=== PATIENT | male | born 1955 | race Caucasian/White ===

== ENCOUNTER 2019-01-16 18:01 | Inpatient (IN) ==
[2019-01-16] MEDS ORDERED: M.V.I.-12 10 ML, FOLIC ACID 1 MG, MAGNESIUM SULFATE 1 GM, THIAMINE 100 MG in NS 1,000 ML IV ONE (18:35)
[2019-01-16 19:09] LABS: AGAP 14; BUN 4 mg/dL (8-22); CALCIUM 9.3 mg/dL (8.8-10.2); CHLORIDE 96 mmol/L (98-107); COSMO 264; CREATININE 0.6 mg/dL (0.7-1.2); ESTIMATED GFR > 60; GLUCOSE 113 mg/dL (70-104); MAGNESIUM 1.4 mg/dL (1.5-2.7); PHOSPHORUS 2.5 mg/dL (2.7-4.5); POTASSIUM 3.3 mmol/L (3.5-5.1); SODIUM 133 mmol/L (136-145); TCO2 23 mmol/L (25-35)
[2019-01-16] MEDS ORDERED: POTASSIUM CHLORIDE 10% LIQUID PO ONE (19:40)
[2019-01-16] MEDS ORDERED: POTASSIUM PHOSPHATE 30 MEQ in NS 250 ML IV ONE (19:40)
[2019-01-16] MEDS ORDERED: ATIVAN IV ONE ×2 (19:41→21:54)
[2019-01-16] MEDS ORDERED: NS 1,000 ML IV ONE (21:35)
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
[2019-01-16] MEDS ORDERED: MAGNESIUM SULFATE 1 GM/D5W 1 GM/100 ML IVPB IV ONE (21:39)
[2019-01-16 21:43] LABS: BASO# 0.03 X1000 (0.0-0.2); BASO% 0.5 % (0.0-0.8); EOS# 0.14 X1000 (0.0-0.7); EOS% 2.2 % (0.0-10.0); HEMATOCRIT 37.6 % (42.0-52.0); HEMOGLOBIN 13.2 g/dL (14.0-18.0); LYMPH# 0.85 X1000 (1.2-3.4); LYMPH% 13.5 % (20.5-51.1); MCH 36.3 PG (27-31); MCHC 35.1 g/dL (33-37); MCV 103.3 FL (81-99); MONO# 1.11 X1000 (0.11-0.59); MONO% 17.6 % (1.7-9.3); MPV 10.1 FL (7.4-10.4); NEUT# 4.16 X1000 (1.4-6.5); NEUT% 66.2 % (42.2-75.2); PLT 175 X1000 (130-400); RBC 3.64 XMIL (4.7-6.1); RDW 11.2 % (11.5-14.5); WBC 6.29 X1000 (4.8-10.8)
[2019-01-16 21:54] LABS: ALB/GLOB RATIO 1.2; ALBUMIN 3.7 g/dL (3.5-5.0); DIRECT BILIRUBIN 0.5 mg/dL (0.00-0.20); TOTAL BILIRUBIN 1.13 mg/dL (0.20-1.00); TOTAL PROTEIN 6.7 g/dL (6.3-8.3)
[2019-01-16] MEDS ORDERED: PHENOBARBITAL IV ONE (21:54)
[2019-01-16] MEDS ORDERED: ATIVAN ONE (21:58)
[2019-01-16] MEDS ORDERED: PHENOBARBITAL ONE (21:58)
--- NOTE | 2019-01-16 22:24 | EKG Report ---
Test Performed on : 01/16/2019 9:43:26 PM Test Reason : tachycardia Blood Pressure : / mmHG Vent. Rate : 083 BPM Atrial Rate : 083 BPM P-R Int : 190 ms QRS Dur : 090 ms QT Int : 384 ms P-R-T Axes : 143 -24 145 degrees QTc Int : 451 ms Unusual P axis, possible ectopic atrial rhythm. with undetermined rhythm irregularity. Low voltage QRS Inferior infarct (cited on or before 14-JAN-2019) T wave abnormality, consider lateral ischemia Abnormal ECG When compared with ECG of 16-JAN-2019 18:19, (Unconfirmed) Ectopic atrial rhythm. has replaced Sinus rhythm. Unconfirmed Result
--- NOTE | 2019-01-16 22:32 | EKG Report ---
Test Performed on : 01/16/2019 6:19:21 PM Test Reason : TACHYCARDIA Blood Pressure : / mmHG Vent. Rate : 117 BPM Atrial Rate : 117 BPM P-R Int : 176 ms QRS Dur : 086 ms QT Int : 328 ms P-R-T Axes : 070 -06 068 degrees QTc Int : 457 ms Sinus tachycardia. Possible Inferior infarct (cited on or before 14-JAN-2019) Abnormal ECG When compared with ECG of 14-JAN-2019 23:13, (Unconfirmed) No significant change was found Unconfirmed Result
--- NOTE | 2019-01-17 00:01 | HISTORY AND PHYSICAL ---
CHIEF COMPLAINT: Weakness in legs. HISTORY OF PRESENT ILLNESS: Mr. Breaux is a 63-year-old male who was discharged earlier today because he did not want to take Librium. He is a chronic alcoholic. His only other past medical history is hypertension and gout. At any rate, he started having cramping in his legs and could not walk. Came back to the emergency room and was found to have a potassium of 3.3, a magnesium of 1.4 and a phosphorus of 2.5. He was also very shaky. This is his 3rd day without alcohol. He will be admitted to ICU for alcohol withdrawal. PAST MEDICAL HISTORY: See HPI. PREVIOUS SURGICAL HISTORY: None to note. ALLERGIES: No known drug allergies. CURRENT MEDICATION: The patient was unable to tell me what his blood pressure medication was. It was never reconciled from yesterday either. SOCIAL HISTORY: No tobacco. Ten-plus beers a day. Started drinking when he was 16 and has drank daily for the last 20-30 years. No illicit drugs. 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 FAMILY HISTORY: Mother was an alcoholic. Father in a plane crash. Did not have any chronic medical history. REVIEW OF SYSTEMS: Fourteen-point review of systems listed above in the HPI. All other systems reviewed and found to be negative. PHYSICAL EXAMINATION: VITAL SIGNS: Temperature 98.3, pulse 101, respirations 18, blood pressure 151/111, oxygen saturation 99. GENERAL: A 63-year-old male lying in the ER stretcher. Has noted resting tremor. Appears anxious. He is alert and oriented times 3. Able to answer all questions appropriately. HEENT: Head is atraumatic, normocephalic. Pupils are equal, round, reactive to light. Flushing to face is noted. Sclerae are anicteric. Conjunctiva is pink. Oral mucosa is dry. NECK: Supple. No JVD. No thyromegaly. Trachea is midline. No cervical lymphadenopathy. CARDIAC: S1, S2 appreciated. No murmurs, gallops, rubs. He is tachycardic. LUNGS: Clear to auscultation bilaterally. No rhonchi, wheezes, rales. Symmetric rise and fall with respirations. ABDOMEN: Soft, nondistended, nontender. Bowel sounds present all 4 quadrants, normoactive. No pulsatile mass. No organomegaly. EXTREMITIES: No clubbing, cyanosis or edema. NEUROLOGICAL: Alert and oriented times 3. Is awake and alert. Denies any auditory or visual hallucinations at this time. GENITOURINARY: No bladder distention. Patient voids. Otherwise deferred. INTEGUMENTARY: Warm, dry, intact. Flushing noted to his face. No acute lesions or rash. LABORATORY DATA: WBC 6.29. Hemoglobin 13.2. Hematocrit 37.6. Platelet count 175. Sodium 133. Potassium 3.3. Chloride 96. Carbon dioxide 23. BUN 4. Creatinine 0.6. Glucose 113. Phosphorus 2.5. Magnesium 1.4. ASSESSMENT AND PLAN: 1. Alcohol withdrawal. We will give phenobarbital IV p.r.n. every 2 hours times 3 doses. A dose was given in the emergency room. We will give Ativan 1 mg IV q.2 hours for the first 24 hours then can be changed to p.o. Librium, defer to the primary team for this. We will give thiamine IV and a multivitamin daily. Recheck magnesium, and phosphorus and potassium tomorrow morning, retreat if necessary. 2. Deranged electrolytes. See above. 3. Fluid volume depletion. A bolus was given in the emergency room. Continue repletion of fluids. Strict I's and O's. 4. Hypertension. Restart home medications when needed. We will add clonidine for now. 5. Chronic alcoholism. This was gone over with the patient. He does state that he wants to quit. Hopefully we can help him succeed in this. Further recommendations per patient clinical course. Dictated by CARMELLA Angulo for Guillaume Walden MD cc: CARMELLA nAgulo MD Exam notable tremors and mildly diaphoretic. Continue with higher doses of Ativan and Phenobarbital. Thiamine and high dose MVI to be given daily. Saw pt. 3hours later and he was more confused. MTDD
[2019-01-17] MEDS: PHENOBARBITAL IV PRN (01:35)
[2019-01-17] MEDS ORDERED: ATIVAN IV ONE (02:32)
[2019-01-17] MEDS ORDERED: ZOFRAN IV PRN (02:32)
[2019-01-17] MEDS ORDERED: ATIVAN IV PRN (02:32)
[2019-01-17 02:57] LABS: BASO# 0.04 X1000 (0.0-0.2); BASO% 0.8 % (0.0-0.8); EOS# 0.11 X1000 (0.0-0.7); EOS% 2.2 % (0.0-10.0); HEMATOCRIT 37.4 % (42.0-52.0); HEMOGLOBIN 13.2 g/dL (14.0-18.0); LYMPH# 0.62 X1000 (1.2-3.4); LYMPH% 12.6 % (20.5-51.1); MCH 36.5 PG (27-31); MCHC 35.3 g/dL (33-37); MCV 103.3 FL (81-99); MONO# 0.73 X1000 (0.11-0.59); MONO% 14.8 % (1.7-9.3); NEUT# 3.42 X1000 (1.4-6.5); NEUT% 69.6 % (42.2-75.2); PLT 161 X1000 (130-400); RBC 3.62 XMIL (4.7-6.1); RDW 11.3 % (11.5-14.5); WBC 4.92 X1000 (4.8-10.8)
[2019-01-17] MEDS: NS 1,000 ML IV SCH ×3 (02:59→21:29)
[2019-01-17 03:04] LABS: URINE SOURCE CATH
[2019-01-17 03:24] LABS: BILIRUBIN URINE NEGATIVE (NEGATIVE); BLOOD URINE NEGATIVE (NEGATIVE); COLOR YELLOW; GLUCOSE URINE NEGATIVE (NEGATIVE); KETONE URINE 10 mg/dL (NEGATIVE); LEUKOCYTES URINE NEGATIVE (NEGATIVE); NITRITE URINE NEGATIVE (NEGATIVE); PH URINE 6.5; PROTEIN URINE NEGATIVE (NEGATIVE); SP GRAVITY URINE 1.007; TURBIDITY URINE CLEAR (CLEAR); UROBILINOGEN URINE NORMAL (NORMAL)
[2019-01-17 03:26] LABS: UR EPITHELIAL CELLS <10 /HPF (<10); URINE BACTERIA 1+ /HPF; URINE RBC <10 /HPF (<10); URINE WBC <10 /HPF (<10)
[2019-01-17] MEDS: FLINTSTONES COMPLETE PO ONE ×2 (03:47→04:01)
[2019-01-17] MEDS: CATAPRES PO SCH ×4 (03:47→21:29)
[2019-01-17] MEDS: ATIVAN IV PRN ×3 (03:47→21:35)
[2019-01-17 05:10] LABS: AGAP 13; BUN 3 mg/dL (8-22); CALCIUM 8.5 mg/dL (8.8-10.2); CHLORIDE 101 mmol/L (98-107); COSMO 271; CREATININE 0.5 mg/dL (0.7-1.2); ESTIMATED GFR > 60; GLUCOSE 117 mg/dL (70-104); PHOSPHORUS 3.3 mg/dL (2.7-4.5); POTASSIUM 3.5 mmol/L (3.5-5.1); SODIUM 137 mmol/L (136-145); TCO2 23 mmol/L (25-35)
[2019-01-17] MEDS: THIAMINE 100 MG in NS 50 ML IV SCH (09:16)
[2019-01-17] MEDS: PRILOSEC PO SCH (09:17)
[2019-01-18] MEDS: NS 1,000 ML IV SCH ×3 (00:24→20:33)
[2019-01-18] MEDS: LIORESAL PO SCH ×3 (08:56→16:42)
[2019-01-18] MEDS: PRINIVIL PO SCH ×2 (08:56→20:33)
[2019-01-18] MEDS: LIBRIUM PO SCH ×3 (08:56→20:33)
[2019-01-18] MEDS: PRILOSEC PO SCH (08:57)
[2019-01-18 09:00] LABS: AGAP 13; BUN 3 mg/dL (8-22); CALCIUM 9.2 mg/dL (8.8-10.2); CHLORIDE 103 mmol/L (98-107); COSMO 276; CREATININE 0.4 mg/dL (0.7-1.2); ESTIMATED GFR > 60; GLUCOSE 102 mg/dL (70-104); MAGNESIUM 1.7 mg/dL (1.5-2.7); PHOSPHORUS 3.6 mg/dL (2.7-4.5); POTASSIUM 3.2 mmol/L (3.5-5.1); SODIUM 140 mmol/L (136-145); TCO2 24 mmol/L (25-35)
[2019-01-18 09:14] LABS: BASO# 0.03 X1000 (0.0-0.2); BASO% 0.6 % (0.0-0.8); EOS# 0.19 X1000 (0.0-0.7); EOS% 3.6 % (0.0-10.0); HEMATOCRIT 40.6 % (42.0-52.0); HEMOGLOBIN 14.4 g/dL (14.0-18.0); IMM GRAN# 0.02 X1000 (0.0-0.04); IMM GRAN% 0.4 % (0.0-0.5); LYMPH# 0.98 X1000 (1.2-3.4); LYMPH% 18.3 % (20.5-51.1); MCH 36.5 PG (27-31); MCHC 35.5 g/dL (33-37); MONO# 0.87 X1000 (0.11-0.59); MONO% 16.3 % (1.7-9.3); MPV 8.9 FL (7.4-10.4); NEUT# 3.26 X1000 (1.4-6.5); NEUT% 60.8 % (42.2-75.2); PLT 210 X1000 (130-400); RBC 3.94 XMIL (4.7-6.1); RDW 11.4 % (11.5-14.5); WBC 5.35 X1000 (4.8-10.8)
[2019-01-18] MEDS: KEFZOL 2 GM/D5W 2 GM/50 ML IVPB IV SCH ×2 (09:45→16:42)
[2019-01-18] MEDS: THIAMINE 100 MG in NS 50 ML IV SCH (09:53)
--- NOTE | 2019-01-18 09:55 | PROGRESS NOTE ---
DATE: 01/18/2019 SUBJECTIVE: Patient is still tremulous but he reports feeling fine. He is eating at the time of my examination. I was given a report that this patient had left foot red and warm. OBJECTIVE: Vital Signs: Temperature 98.1, heart rate 59, respiratory rate 12, blood pressure 123/73, O2 saturation 98% on room air. General Examination: This is a chronically ill-appearing, 63-year-old, male, lying in bed, in no acute distress. HEENT: Head is normocephalic and atraumatic. Poor dentition. Mucous membranes are dry. Neck: No JVD noted. No carotid bruits. No lymphadenopathy. No thyromegaly. Cardiovascular Examination: S1 and S2 heard. No murmurs, gallops, or rubs. Tachycardic. Respiratory Examination: Clear bilaterally to auscultation. No work of breathing or using accessory muscles. Abdomen: Soft. A little bit distended but nontender to palpation. Bowel sounds present. No organomegaly. Extremities: No clubbing, cyanosis, or edema. Peripheral pulses present in both legs. Neurological Examination: The patient is awake. A little bit confused. Bilateral hand tremor noted. Denies any auditory or visual hallucinations at this time. Laboratory Data: There are no labs from today yet. ASSESSMENT AND PLAN: 1. Alcohol withdrawal. The patient is on Ativan. I think, at this time, considering that he is more awake and able to take medications by mouth, we are going to start baclofen 20 mg by mouth 3 times per day and also Librium. In this case, we will use 25 mg by mouth every 6 hours. We will see how this patient does. 2. Hypokalemia, resolved. 3. Electrolyte derangements. From yesterday, phosphorus and magnesium have been corrected. We will check it today. 4. Hypertension. We have seen that clonidine has been causing hypotension with this patient so we decided to stop it and start lisinopril 20 mg by mouth twice a day. 5. Chronic alcoholism. Aware. Patient expressed his desire to quit at admission. 6. Left foot cellulitis. Patient has been started on Kefzol 2 g intravenously every 8 hours. We will see how this patient does. 7. Disposition. We will continue to monitor this patient closely in the intensive care unit. cc: Sanju Lopez MD
--- NOTE | 2019-01-18 21:35 | Extremity Venous Study ---
PROCEDURE NAME: Venous U/S Bilateral Legs - 01/18/2019 BILATERAL LOWER EXTREMITY VENOUS DUPLEX AND COLOR FLOW IMAGING STUDY USING THE [employer] VIVID E9 ULTRASOUND SYSTEM WITH A 9L-D TRANSDUCER: REFERRING PHYSICIANS: Dr. Cedillo. 63-year-old male. LOCOMOTIVE SWITCH OPERATOR: Dena Rojas RVT. INDICATIONS: Bilateral lower extremity pain and edema suggestive of deep venous thrombosis. FINDINGS: Right common femoral vein and its branches, deep and superficial femoral veins were satisfactorily imaged. They had flow through them and were compressible. Right popliteal vein, deep veins below the right knee were all compressible and had flow through them. Superficial veins of the right lower extremity were compressible throughout their length. The left common femoral vein and its branches, deep and superficial femoral veins were also satisfactorily imaged. They had flow through them and were compressible. Left popliteal vein, deep veins below the left knee were all compressible and had flow through them. Superficial veins of the left lower extremity were compressible throughout their length. INTERPRETATION: No evidence of acute deep or superficial venous thrombosis of the bilateral lower extremities. cc: MD Sanju Calvillo MD
[2019-01-19] MEDS: KEFZOL 2 GM/D5W 2 GM/50 ML IVPB IV SCH ×3 (02:58→18:10)
[2019-01-19] MEDS: LIBRIUM PO SCH ×4 (02:58→21:52)
[2019-01-19] MEDS: NS 1,000 ML IV SCH ×2 (05:26→13:23)
[2019-01-19 05:37] LABS: HEMATOCRIT 35.4 % (42.0-52.0); HEMOGLOBIN 12.6 g/dL (14.0-18.0); MCH 37.2 PG (27-31); MCHC 35.6 g/dL (33-37); MCV 104.4 FL (81-99); MPV 9.4 FL (7.4-10.4); RBC 3.39 XMIL (4.7-6.1); RDW 11.5 % (11.5-14.5); WBC 6.34 X1000 (4.8-10.8)
[2019-01-19 07:08] LABS: AGAP 14; BUN 3 mg/dL (8-22); CALCIUM 8.2 mg/dL (8.8-10.2); CHLORIDE 108 mmol/L (98-107); COSMO 285; CREATININE 0.5 mg/dL (0.7-1.2); ESTIMATED GFR > 60; GLUCOSE 133 mg/dL (70-104); MAGNESIUM 1.5 mg/dL (1.5-2.7); PHOSPHORUS 3.3 mg/dL (2.7-4.5); POTASSIUM 2.7 mmol/L (3.5-5.1); SODIUM 144 mmol/L (136-145); TCO2 22 mmol/L (25-35)
[2019-01-19] MEDS: THIAMINE 100 MG in NS 50 ML IV SCH (08:41)
[2019-01-19] MEDS: POTASSIUM CHLORIDE 60 MEQ in NS 500 ML IV SCH ×2 (08:41→15:36)
[2019-01-19] MEDS: LIORESAL PO SCH ×3 (08:42→18:09)
[2019-01-19] MEDS: PRILOSEC PO SCH (08:42)
[2019-01-19] MEDS: PRINIVIL PO SCH ×2 (08:42→21:52)
--- NOTE | 2019-01-19 09:33 | PROGRESS NOTE ---
DATE: 01/19/2019 SUBJECTIVE: According to nursing staff, patient has been feeling more calmed down. No need for any restraints. On just three doses of Ativan. He is on Librium and baclofen. Upon my examination this morning, he is more awake, able to have a coherent conversation. He complains of general weakness. OBJECTIVE: Vital Signs: Temperature 98.1, heart rate 75, respiratory rate 16, blood pressure 114/65, O2 saturation 98% on room air. General Examination: This is a chronically ill-appearing, disheveled, 63-year-old male, lying in bed in no acute distress. Cardiovascular exam: S1 and S2 heard. No murmurs, gallops, or rubs. Regular rate and rhythm. Respiratory exam: Clear bilaterally to auscultation. No work of breathing or using accessory muscles. Abdomen: Soft, nontender to palpation. Bowel sounds present. No organomegaly. Extremities: No clubbing, cyanosis or edema. In the left foot, less reddening, warmth noted. Neurological exam: Patient is more awake today. Still minimal hand tremor noted. Denies any visual or auditory hallucination. LABORATORY DATA: White cell count 6.34, hemoglobin 12.6, hematocrit 35.4, platelets 226 with BMP remarkable for potassium 2.7. Normal renal function. Calcium 8.2, normal phosphorus and magnesium. ASSESSMENT AND PLAN: 1. Alcohol withdrawal. Patient is on Librium and baclofen and Ativan p.r.n. I think this patient is getting better. He is able to eat normally. At this point, I think the patient is stable enough to be moved out of the intensive care unit today. 2. Hypokalemia. Potassium is low at 2.8. We will repeat potassium today and check basic metabolic panel tomorrow. 3. Electrolyte derangement. Phosphorus examination continued to be okay. We will continue to check those while this patient is here in the hospital. 4. Hypertension. The patient has been started on lisinopril. His blood pressure is so far stable. We will continue with same management. 5. Chronic alcoholism, aware. The patient wanted to quit drinking alcohol. 6. Left foot cellulitis. The patient has been started on Kefzol 2 g intravenous every 8 hours, and also we have ruled out any deep vein thrombosis in that extremity. 7. Disposition: We will continue to monitor this patient closely, but he can be transferred out of the unit today. cc: Sanju Lopez MD [facility]
[2019-01-19] MEDS ORDERED: NS 1,000 ML ONE (13:31)
[2019-01-19] MEDS: ATIVAN IV PRN ×2 (15:58→21:32)
[2019-01-19] MEDS: PHENOBARBITAL IV PRN (22:10)
[2019-01-20] MEDS: ATIVAN IV PRN ×4 (00:39→19:55)
[2019-01-20] MEDS: KEFZOL 2 GM/D5W 2 GM/50 ML IVPB IV SCH ×3 (00:45→18:18)
[2019-01-20] MEDS: NS 1,000 ML IV SCH ×5 (01:36→12:08)
[2019-01-20] MEDS: LIBRIUM PO SCH ×2 (02:46→17:54)
[2019-01-20 06:21] LABS: HEMATOCRIT 37.8 % (42.0-52.0); HEMOGLOBIN 13.1 g/dL (14.0-18.0); MCH 36.6 PG (27-31); MCHC 34.7 g/dL (33-37); MCV 105.6 FL (81-99); MPV 9.2 FL (7.4-10.4); RBC 3.58 XMIL (4.7-6.1); RDW 11.8 % (11.5-14.5); WBC 4.85 X1000 (4.8-10.8)
[2019-01-20 06:55] LABS: AGAP 10; BUN 2 mg/dL (8-22); CHLORIDE 106 mmol/L (98-107); COSMO 277; CREATININE 0.4 mg/dL (0.7-1.2); ESTIMATED GFR > 60; GLUCOSE 116 mg/dL (70-104); MAGNESIUM 1.5 mg/dL (1.5-2.7); PHOSPHORUS 3.5 mg/dL (2.7-4.5); POTASSIUM 3.3 mmol/L (3.5-5.1); SODIUM 140 mmol/L (136-145); TCO2 24 mmol/L (25-35)
[2019-01-20] MEDS ORDERED: POTASSIUM CHLORIDE 60 MEQ in NS 500 ML IV ONE (10:43)
--- NOTE | 2019-01-20 11:33 | PROGRESS NOTE ---
DATE: 01/20/2019 SUBJECTIVE: Patient, according to nursing staff, has been very sleepy. Upon my examination, he barely wakes up. The last dosage of Ativan apparently was given at 6:17 a.m. this morning, and he did not take any Librium or baclofen this morning. OBJECTIVE: Vital Signs: Temperature 98.1 degrees, heart rate 68, respiratory rate 16, blood pressure 107/68, O2 saturation is 100% on room air. General Examination: This is a chronically ill-appearing, disheveled, 63-year-old male, lying in bed, in no acute distress. Cardiovascular: S1, S2 heard. No murmurs, gallops, or rubs. Regular rate and rhythm. Respiratory: Clear bilaterally to auscultation. No work of breathing or using accessory muscles. Abdomen: Soft, nontender to palpation. Bowel sounds present. No organomegaly. Also the left foot less red and warmth noted. Neurological: Patient is very sleepy this morning. Moves 4 extremities spontaneously. Answered to verbal stimuli. LABORATORY DATA: Repeated potassium was 3.3 with normal renal function. ASSESSMENT AND PLAN: 1. Alcohol withdrawal. Patient is lethargic and very sleepy, I decided to stop Librium and continue with baclofen and Ativan p.r.n. We will continue to monitor this patient closely. 2. Hypokalemia. That is better today. We will replete potassium and check BMP tomorrow. 3. Hypertension. Blood pressure is well controlled. We will continue with the same management. 4. Chronic alcoholism. Aware. 5. Left foot cellulitis. We will continue with Kefzol. Patient clinically getting better. DISPOSITION: We will continue to monitor this patient closely. cc: Sanju Lopez MD [facility]
[2019-01-20] MEDS: PRINIVIL PO SCH ×2 (12:19→19:59)
[2019-01-20] MEDS: PRILOSEC PO SCH (12:20)
[2019-01-20] MEDS: LIORESAL PO SCH ×3 (12:20→18:30)
[2019-01-21] MEDS: KEFZOL 2 GM/D5W 2 GM/50 ML IVPB IV SCH ×3 (02:52→18:43)
[2019-01-21] MEDS: ATIVAN IV PRN ×3 (02:52→21:03)
[2019-01-21] MEDS: NS 1,000 ML IV SCH ×3 (05:31→18:43)
[2019-01-21] MEDS: LIORESAL PO SCH ×3 (12:15→18:44)
[2019-01-21] MEDS: PRINIVIL PO SCH ×2 (12:16→21:03)
[2019-01-21] MEDS: PRILOSEC PO SCH (12:16)
--- NOTE | 2019-01-21 13:42 | PROGRESS NOTE ---
DATE: 01/21/2019 SUBJECTIVE: The patient is a little bit more awake today upon my examination. He is not requiring too much Ativan. He reports feeling very weak. OBJECTIVE: Vital Signs: Temperature 97.9 degrees, heart rate 81, respiratory rate 14, blood pressure 126/95, O2 saturation 97% on room air. General Examination: This is a chronically ill- appearing, 64-year-old, male, lying in bed, in no acute distress. Cardiovascular Examination: S1 and S2 heard. No murmurs, gallops, or rubs. Regular rate and rhythm. Respiratory Examination: Clear bilaterally to auscultation. No work of breathing or using accessory muscles. Abdomen: Soft, nontender to palpation. Bowel sounds present. No organomegaly. Extremities: No clubbing, cyanosis, or edema. Peripheral pulses present in both legs. Left foot is definitely less red. Neurological Examination: The patient is a little bit more awake but is still somewhat slow. Moves 4 extremities spontaneously. Speech is slow but coherent. Laboratory Data: The BMP shows potassium from yesterday 3.3. No labs from today. ASSESSMENT AND PLAN: 1. Alcohol withdrawal. Patient is recovering slowly. We will continue with baclofen only because with Librium he was very sleepy, he is still on Ativan as needed. 2. Hypokalemia. We do not have the results of the BMP today. If potassium is still low, we will continue to replenish. 3. Hypertension. Blood pressure is under control. We will continue with the same management. 4. Left foot cellulitis. Continue with Kefzol. 5. Disposition. At this point, we will continue to monitor this patient closely. Continue with current management and I think he will need to go to a rehab facility as per occupational therapy and physical therapy recommendations. therapeutic activities services worker has been consulted. cc: Sanju Lopez MD MTDD
[2019-01-21 14:51] LABS: AGAP 15; BUN 3 mg/dL (8-22); CALCIUM 9.3 mg/dL (8.8-10.2); CHLORIDE 101 mmol/L (98-107); COSMO 276; CREATININE 0.4 mg/dL (0.7-1.2); ESTIMATED GFR > 60; GLUCOSE 96 mg/dL (70-104); POTASSIUM 3.6 mmol/L (3.5-5.1); SODIUM 140 mmol/L (136-145); TCO2 24 mmol/L (25-35)
[2019-01-22] MEDS: KEFZOL 2 GM/D5W 2 GM/50 ML IVPB IV SCH ×3 (03:43→21:11)
[2019-01-22] MEDS: NS 1,000 ML IV SCH ×2 (06:35→16:10)
[2019-01-22 07:01] LABS: AGAP 18; BUN 3 mg/dL (8-22); CALCIUM 9.3 mg/dL (8.8-10.2); CHLORIDE 101 mmol/L (98-107); COSMO 277; CREATININE 0.5 mg/dL (0.7-1.2); ESTIMATED GFR > 60; GLUCOSE 92 mg/dL (70-104); POTASSIUM 3.5 mmol/L (3.5-5.1); SODIUM 141 mmol/L (136-145); TCO2 22 mmol/L (25-35)
--- NOTE | 2019-01-22 10:13 | PROGRESS NOTE ---
DATE: 01/22/2019 SUBJECTIVE: The patient is a little bit more sleepy today. No acute issues noted as per nursing staff overnight. OBJECTIVE: Vital Signs: Temperature 98.6 degrees, heart rate 81, respiratory rate 16, blood pressure 103/66, O2 saturation 98% on room air. General Examination: This is a chronically ill appearing, disheveled, 64-year-old male, lying in bed in no acute distress. Cardiovascular exam: S1, S2 heard. No murmurs, gallops, or rubs. Regular rate and rhythm. Respiratory exam: Clear bilaterally to auscultation. No work of breathing or using accessory muscles. Abdomen: Soft, nontender to palpation. Bowel sounds present. No organomegaly. Extremities: No clubbing, cyanosis, or edema. Peripheral pulses present in both legs. Left foot is not red anymore Neurological exam: Patient is a little bit sleepy today, but answers verbal stimuli. Speech is still low, but coherent. LABORATORY DATA: The BMP is unremarkable today. ASSESSMENT AND PLAN: 1. Alcohol withdrawal. The patient is recovering slowly. We will continue with baclofen only because Librium was causing him to be very sleepy. The patient is also on Ativan as needed. 2. Hypokalemia, resolved. 3. Hypertension. Blood pressure is under control. We will continue with the same management. 4. Left foot cellulitis. The patient has been started on Kefzol; today is day number five antibiotics. Once he is ready to go, he can be switched to oral, in this case Keflex. 5. Disposition: Patient is working with physical therapy and occupational therapy. Both of them has recommended rehab. We have talked with social services designee. We are awaiting for a bed for him once his insurance company approves this. cc: Sanju Lopez MD
[2019-01-22] MEDS: PRILOSEC PO SCH (11:03)
[2019-01-22] MEDS: LIORESAL PO SCH ×3 (11:03→18:23)
[2019-01-22] MEDS: PRINIVIL PO SCH ×2 (11:04→21:12)
[2019-01-22] MEDS: ATIVAN IV PRN ×2 (16:08→23:14)
[2019-01-23] MEDS: KEFZOL 2 GM/D5W 2 GM/50 ML IVPB IV SCH (03:43)
[2019-01-23] MEDS: NS 1,000 ML IV SCH ×6 (03:43→23:27)
[2019-01-23 06:50] LABS: AGAP 17; BUN 3 mg/dL (8-22); CALCIUM 8.8 mg/dL (8.8-10.2); CHLORIDE 100 mmol/L (98-107); COSMO 272; CREATININE 0.5 mg/dL (0.7-1.2); ESTIMATED GFR > 60; GLUCOSE 98 mg/dL (70-104); POTASSIUM 3.4 mmol/L (3.5-5.1); SODIUM 138 mmol/L (136-145); TCO2 21 mmol/L (25-35)
[2019-01-23 09:21] LABS: SAMPLE BLOOD
[2019-01-23 09:22] LABS: BE -2.2 mmoll (-2.0-2.0); HCO3-(ACT) 22.5 mmoll (22-27); PCO2(98.6) 33 mmHg (40-60); SAO2 75.8 % (40.0-85.0); pH(98.6) 7.42 (7.32-7.43)
[2019-01-23] MEDS ORDERED: VERSED ONE (09:27)
[2019-01-23] MEDS ORDERED: NORCURON ONE (09:27)
[2019-01-23] MEDS ORDERED: QUELICIN ONE (09:27)
[2019-01-23] MEDS ORDERED: AMIDATE ONE (09:27)
[2019-01-23] MEDS: ATIVAN IV PRN (09:30)
[2019-01-23] MEDS ORDERED: VANCOMYCIN IV PER PHARMACY MISC SCH (09:49)
[2019-01-23] MEDS ORDERED: DUONEB (A & A) INH PRN (09:49)
[2019-01-23 09:50] LABS: BASO# 0.07 X1000 (0.0-0.2); BASO% 0.7 % (0.0-0.8); EOS# 0.11 X1000 (0.0-0.7); EOS% 1.1 % (0.0-10.0); HEMATOCRIT 43.5 % (42.0-52.0); HEMOGLOBIN 14.9 g/dL (14.0-18.0); IMM GRAN# 0.05 X1000 (0.0-0.04); IMM GRAN% 0.5 % (0.0-0.5); LYMPH# 1.58 X1000 (1.2-3.4); LYMPH% 15.2 % (20.5-51.1); MCH 35.6 PG (27-31); MCHC 34.3 g/dL (33-37); MCV 103.8 FL (81-99); MONO# 2.16 X1000 (0.11-0.59); MONO% 20.7 % (1.7-9.3); MPV 9.1 FL (7.4-10.4); NEUT# 6.44 X1000 (1.4-6.5); NEUT% 61.8 % (42.2-75.2); PLT 377 X1000 (130-400); RBC 4.19 XMIL (4.7-6.1); RDW 11.6 % (11.5-14.5); WBC 10.41 X1000 (4.8-10.8)
--- NOTE | 2019-01-23 09:56 | Diag Imaging Result Doc PS360 ---
CHEST-1 VIEW - 01/23/2019 INDICATION: Cough, sepsis protocol COMPARISON: None FINDINGS: The lungs are normally expanded and clear. Heart size and mediastinal contours are normal. No pneumothorax or pleural effusion. IMPRESSION: Negative exam. Electronically signed by Jad Mathew 01/23/2019 9:54 AM
--- NOTE | 2019-01-23 09:58 | Diag Imaging Result Doc PS360 ---
CHEST-PORTABLE - 01/23/2019 9:36 AM INDICATION: intubation COMPARISON: 9:18 AM FINDINGS: There is an endotracheal tube in good position at T2. The lungs remain clear and the heart size is normal. IMPRESSION: Good endotracheal tube placement. Electronically signed by Jad Mathew 01/23/2019 9:55 AM
[2019-01-23] MEDS ORDERED: XYLOCAINE 2% VISCOUS ONE (10:05)
[2019-01-23 10:08] LABS: INR 1.16; PROTIME 15.7 Seconds (11.0-16.0)
[2019-01-23 10:09] LABS: PTT 36.1 Seconds (22.3-41.8)
[2019-01-23 10:12] LABS: AGAP 18; ALBUMIN 3.5 g/dL (3.5-5.0); ALKALINE PHOSPHATASE 153 U/L (32-122); BUN 3 mg/dL (8-22); CHLORIDE 100 mmol/L (98-107); CK PROFILE 25 U/L (24-204); COSMO 274; CREATININE 0.6 mg/dL (0.7-1.2); ESTIMATED GFR > 60; GLUCOSE 101 mg/dL (70-104); GOT 36 U/L (10-34); GPT 37 U/L (10-44); SODIUM 139 mmol/L (136-145); TCO2 21 mmol/L (25-35); TOTAL BILIRUBIN 0.88 mg/dL (0.20-1.00)
[2019-01-23 10:28] LABS: BLOOD TYPE VENOUS
[2019-01-23 10:29] LABS: PO2(98.6) 37 mmHg (30-55)
[2019-01-23 10:30] LABS: ANISOCYTOSIS 2+; BANDS 5 % (0-1); BASO 1 % (0-1); EOS 1 % (1-10); LYMPHS 19 % (21-51); MONO 14 % (1-9); SEGS 60 % (42-75)
[2019-01-23 10:31] LABS: LARGE PLATELETS OCCASIONAL
[2019-01-23 10:48] LABS: URINE SOURCE CATH
[2019-01-23 10:53] LABS: BILIRUBIN URINE NEGATIVE (NEGATIVE); BLOOD URINE LARGE (NEGATIVE); COLOR YELLOW; GLUCOSE URINE NEGATIVE (NEGATIVE); KETONE URINE 100 mg/dL (NEGATIVE); LEUKOCYTES URINE NEGATIVE (NEGATIVE); NITRITE URINE NEGATIVE (NEGATIVE); PH URINE 5.5; PROTEIN URINE TRACE mg/dL (NEGATIVE); SP GRAVITY URINE 1.016; TURBIDITY URINE CLEAR (CLEAR); UROBILINOGEN URINE NORMAL (NORMAL)
[2019-01-23 11:05] LABS: UR EPITHELIAL CELLS <10 /HPF (<10); URINE BACTERIA NEGATIVE /HPF; URINE RBC TNTC /HPF (<10); URINE WBC <10 /HPF (<10)
[2019-01-23] MEDS ORDERED: POTASSIUM CHLORIDE 40 MEQ/SWI 40 MEQ/100 ML IVPB IV ONE (11:15)
[2019-01-23 11:17] LABS: URINE CRYSTALS NONE SEEN
[2019-01-23] MEDS: DUONEB (A & A) INH SCH ×4 (11:17→23:26)
[2019-01-23] MEDS: DIPRIVAN 1% 1,000 MG/100 ML BOTTLE IV SCH ×3 (11:27→23:29)
[2019-01-23] MEDS: ZOSYN 3.375 GM in NS 50 ML IV SCH ×3 (11:28→23:29)
[2019-01-23] MEDS: PEPCID IV SCH ×2 (11:29→23:28)
[2019-01-23] MEDS: SODIUM CHLORIDE 0.9% INJ SCH (11:29)
[2019-01-23 11:42] LABS: ALLEN TEST YES; BE -2.8 mmoll (-3.0-3.0); BLOOD TYPE ARTERIAL; HCO3-(ACT) 22.7 mmoll (20.0-26.0); METHB 1.4 % (0.0-1.5); O2(CT) 18.6 mL/dL (15.0-23.0); O2HB 97.3 % (95.0-99.0); PCO2(98.6) 31 mmHg (35-45); PO2(98.6) 340 mmHg (60-100); SAMPLE BLOOD; SAO2 100.4 % (95.0-100.0); SRATE 14 BPM; TVOL 500 mL; pH(98.6) 7.43 (7.35-7.45)
[2019-01-23 11:43] LABS: MODALITY VENTILATOR
--- NOTE | 2019-01-23 11:55 | PROGRESS NOTE ---
DATE: 01/23/2019 CRITICAL CARE NOTE: Called to bedside urgently because of change in patient's mental and respiratory status. Nursing reports that this morning he had mildly decreased saturations at approximately 88 with some mild confusion. He was placed on oxygen with appropriate increase in saturations. On reassessment, however, patient was only minimally responsive, saturations down into the 70s. Patient put on non-rebreather. Saturations remained in the 70s. When I came to the bedside, patient had significantly increased work of breathing, significant bilateral accessory muscle use. Continuous pulse oximetry showing good waveform, but saturations in the low 70s. On auscultation patient had diffuse rhonchi and decreased breath sounds on the right especially superiorly. The patient was suctioned aggressively with no improvement. Trachea was midline. The patient was diaphoretic, was somewhat responsive to commands, but not really following them. Nonverbal secondary to dyspnea. X-ray was present at that time, so a stat x-ray was obtained. Initial view did not show any obvious pneumothorax or major consolidation. Decision made to intubate based on ongoing hypoxia despite maximal noninvasive ventilation. The patient was given etomidate and succinylcholine and intubated at the bedside. Significant bilious looking appearing material in the airway, but the patient was successfully intubated. Post intubation x-ray showing reasonable placement. After intubation, the patient had diffuse rhonchi but improved breath sounds on the right, although still slightly decreased at right upper lobe. Post intubation the patient's saturations did improve into the low 90s with continuous bagging. ABG obtained just prior to intubation showing appropriately low CO2, markedly low PO2 at 37, significantly low saturation consistent with pulse oximetry. Nursing did note some vomitus on his blanket this morning, so suspect aspiration event. Moving patient to the ICU with sedation with propofol and morphine as needed. Repeat ABG in a couple hours. Placing on empiric antibiotics for now but may be able to be discontinued in a day or 2 if no pneumonia presents itself. TIME OF INITIAL ASSESSMENT: Approximately 9:20. TIME OF INTUBATION: Approximately 9:35. TOTAL CRITICAL CARE TIME SPENT: Immediately available to the patient, assessing the patient, reviewing labs, making medical decisions and intubating approximately 40 minutes. [facility]
[2019-01-23] MEDS ORDERED: VANCOMYCIN 2,250 MG in NS 500 ML IV ONE (12:00)
--- NOTE | 2019-01-23 12:44 | PROGRESS NOTE ---
DATE: 01/23/2019 SUBJECTIVE: CAT call today around 9 because the patient became in severe respiratory distress with hypoxia. He has been kind of tachycardic overnight, although blood pressures have been stable. No focal complaints. Really his labs were unremarkable, but he was CAT called and felt to be possible aspiration pneumonia. There was dried emesis apparently on his sheets. He was subsequently intubated due to acute respiratory failure. Dr. Patel and Keiry England were available, and see their note considering details. I saw the patient around 10. He was intubated and stable, O2 sats were stable. We transferred him to the unit for further management. I did discuss with his significant other about his state. OBJECTIVE: Vital Signs: Blood pressure is 146/75, heart rate of 121, respiratory rate of 32, temperature 99.9, but I think his most recent temperature is 101.5, 94% on 2 L. Cardiovascular: Regular rate and rhythm. Pulmonary: Bilateral breath sounds clear to auscultation. He has rhonchorous breath sounds. Gastrointestinal: Soft, nontender, nondistended. Bowel sounds are positive. DIAGNOSTIC DATA: White count is 10, hemoglobin and hematocrit 14 and 43, platelets 377,000. Chemistries: Most recent potassium was 4 with an AST of 36. PROBLEM LIST: 1. Acute respiratory failure, unclear etiology, if this is aspiration or just institutional acquired pneumonia or pulmonary edema. He is doing okay now, white count. BUN 3 and creatinine 0.6. We will continue broad-spectrum antibiotics, pulmonary toilet. Dr. Saldana has been consulted. We will continue to manage. 2. Encephalopathy. At this point, it is not clear if it is alcohol related because it has been 9 days since he has had a drink. It could be a very prolonged course, but we are not entirely sure. In any case, the patient is stable now. Hypotension has resolved. We will continue to follow. Critical care time is 35 minutes. Did attempt a central line but was unable to achieve that on the right subclavian. It was an arterial stick and on the right IJ, could not cannulate the vessel. Placed surgical consult for central line placement. cc: Jaguar Moyer MD
--- NOTE | 2019-01-23 13:54 | Diag Imaging Result Doc PS360 ---
CHEST-PORTABLE - 01/23/2019 INDICATION: central line COMPARISON: 01/23/2019 FINDINGS: There is a new right central line with the catheter tip in the lower SVC. There is a new nasogastric tube in good position in the stomach. Endotracheal tube is in good position at T3. No significant infiltrates. No pneumothorax or large pleural effusion. IMPRESSION: No complication. Electronically signed by Jad Mathew 01/23/2019 1:52 PM
--- NOTE | 2019-01-23 14:31 | OPERATIVE NOTE ---
PROCEDURE DATE: 01/23/2019 PREOPERATIVE DIAGNOSES: 1. Respiratory failure. 2. Alcohol withdrawal. 3. Aspiration. POSTOPERATIVE DIAGNOSES: 1. Respiratory failure. 2. Alcohol withdrawal. 3. Aspiration. PROCEDURE: Insertion of central venous catheter with ultrasound guidance. SURGEON: Axel Frank MD. ESTIMATED BLOOD LOSS: Scant. COMPLICATIONS: None. FINDINGS: The right internal jugular vein was found with ultrasound. It was compressible, patent without thrombus technique. He was placed in Trendelenburg in his ICU bed. His right neck was prepped and draped in usual sterile fashion. 1% lidocaine was used to anesthetize the skin over the right internal jugular vein which was visualized with ultrasound. The vein was then accessed under ultrasound guidance with 1 stick. The wire passed easily. The track was dilated. A triple- lumen catheter was passed over the wire into the vein via the Seldinger technique. The wire was removed. All ports bob back blood and were flushed with saline easily. The catheter was anchored to the skin with silk suture. A sterile dressing was applied. There were no apparent complications. cc: Axel Frank MD
--- NOTE | 2019-01-23 15:58 | Diag Imaging Result Doc PS360 ---
US ABDOMEN-COMPLETE - 01/23/2019 INDICATION: abdominal pain COMPARISON: None FINDINGS: The liver is severely fatty. No liver masses. No biliary obstruction. There is some echogenic sludge throughout the gallbladder. No shadowing gallstones. No evidence of gallbladder inflammation. There is a small right renal cyst measuring 1.2 cm. Otherwise both kidneys are normal. The pancreas and spleen are normal. The spleen measures 12.2 x 3.7 cm. Common bile duct measures 3 mm. Aorta, IVC, and main portal vein are patent. IMPRESSION: Significant hepatic steatosis. Significant sludge throughout the gallbladder, nonspecific. Electronically signed by Jad Mathew 01/23/2019 3:55 PM
--- NOTE | 2019-01-23 16:50 | ECHO REPORT ---
ORDER DATE: 01/23/2019 ECHOCARDIOGRAPHIC MEASUREMENTS AND FINDINGS: Interventricular septum 1.0. Left ventricular posterior wall 1.1. Diastolic diameter 4.8. Aorta 3.7 cm. Mitral valve was normal. Aortic valve leaflets not well visualized. Tricuspid valve was normal. Pulmonic valve not well visualized. Technically suboptimal study. Poor acoustic window. Normal left ventricular cavity size. Estimated ejection fraction of 65%. There is trace mitral regurgitation. Peak velocity across the aortic valve less than 2 m/sec. There is no aortic stenosis or regurgitation by Doppler studies. Trace tricuspid regurgitation. Peak velocity across the tricuspid valve less than 2 m/sec. There is no pericardial effusion or obvious intracardiac mass or thrombus seen. Technically suboptimal study. Very poor acoustic window. cc: MD Jaguar Mendiola MD
--- NOTE | 2019-01-23 19:09 | CONSULTATION ---
DATE OF CONSULTATION: 01/23/2019 REQUESTING PROVIDER: CARMELLA Mcgill. REASON FOR CONSULTATION: On mechanical ventilator with acute respiratory failure. HISTORY OF PRESENT ILLNESS: This is a 63-year-old male with a medical history of hypertension, gout, and alcoholism. He apparently had been admitted from 01/14/2019 to 01/16/2019 with alcohol withdrawal. On the same day he was discharged, he presented to the ER with bilateral lower extremity weakness. Initial workup revealed deranged electrolytes and fluid volume depletion. He has been admitted again for further evaluation and management. During this hospital stay, he developed some respiratory distress last night, which has been worsened overnight. Eventually, he required intubation this morning. The patient currently has been transferred to the ICU. He is intubated and sedated. There is no family at the bedside. All information is obtained from the E-chart. PAST MEDICAL HISTORY: 1. Hypertension. 2. Gout. 3. Alcoholism. PAST SURGICAL HISTORY: None to note. FAMILY HISTORY: Mother was an alcoholic. Father in a plane crash. SOCIAL HISTORY: The patient started drinking when he was 16 and has drunk daily for the last 20 to 30 years. He drinks 10+ beers a day. He has no tobacco or illicit drug use. 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 ALLERGIES: No known drug allergies. REVIEW OF SYSTEMS: Unable to be obtained. PHYSICAL EXAMINATION: Vital Signs: Temperature 101, blood pressure 139/91, pulse 98, respiratory rate 14, oxygen saturation 100% on mechanical ventilator with spontaneous rate 14, FiO2 50%, tidal volume 500 and PEEP 5. General: Hklyewvomol-ubi-zqscmeqis, intubated and sedated, unresponsive. HEENT: Atraumatic, normocephalic. Trachea midline. ET tube in place. NG tube in place. Mucosa pink and dry. Respiratory: Mechanically ventilated, clear to auscultation. Cardiovascular: Regular rate and rhythm. Gastrointestinal: Soft, nondistended. Normoactive bowel sounds in all 4 quadrants. Extremities: No pedal edema. No cyanosis. No clubbing. Dorsalis pedis 2+ bilaterally. Neurologic: Sedated, unresponsive to verbal or physical stimuli. LAB DATA: White blood cells 10.41, hemoglobin 14.9, hematocrit 43.5, platelet count 377. Sodium 139, potassium 4.0, chloride 100, carbon dioxide 21, BUN 3, creatinine 0.6, glucose 101. ABG: pH of 7.43, pCO2 of 31, PO2 of 340, HC03 of 22.7, base excess -2.8 and oxyhemoglobin 97.3. IMAGING DATA: Chest x-ray shows negative exam. Abdominal ultrasound shows significant hepatic steatosis, significant sludge throughout the gallbladder. ASSESSMENT: This is a 63-year-old male with a medical history of hypertension, gout, and alcoholism. He has been admitted since 01/16/2019 with alcohol withdrawal, deranged electrolytes and fluid volume depletion. He developed respiratory distress since last night, and it had been worsened overnight. Eventually he required intubation this morning. 1. Acute hypoxic respiratory failure. 2. Alcoholism with alcohol withdrawal. 3. Significant hepatic steatosis. 4. Encephalopathy. PLAN: 1. Continue mechanical ventilator and will start weaning trials when appropriate. 2. Continue antibiotics and bronchodilators. 3. Follow up with arterial blood gas, complete blood count, basic metabolic panel and chest x- ray. Follow up with blood culture and sputum culture. 4. Continue gastrointestinal and deep venous thrombosis prophylaxis. Thank you for the courtesy of this consult. Dictated by CARMELLA Gautam for Maddie Saldana MD cc: CARMELLA Gautam MD [facility]
[2019-01-23] MEDS: VANCOMYCIN 1,750 MG in NS 250 ML IV SCH (23:30)
[2019-01-24] MEDS: DUONEB (A & A) INH SCH ×6 (02:53→23:21)
[2019-01-24 05:09] LABS: ALLEN TEST YES; BLOOD TYPE ARTERIAL; HCO3-(ACT) 25.8 mmoll (20.0-26.0); PCO2(98.6) 26 mmHg (35-45); PO2(98.6) 184 mmHg (60-100); SAMPLE BLOOD; SRATE 14 BPM; TVOL 500 mL; pH(98.6) 7.54 (7.35-7.45)
[2019-01-24 05:11] LABS: MODALITY VENTILATOR
[2019-01-24] MEDS: NS 1,000 ML IV SCH ×4 (05:13→17:10)
[2019-01-24] MEDS: LOVENOX SUBQ SCH (05:15)
[2019-01-24] MEDS: ZOSYN 3.375 GM in NS 50 ML IV SCH ×2 (05:15→11:20)
--- NOTE | 2019-01-24 07:03 | Diag Imaging Result Doc PS360 ---
EXAM: CHEST-PORTABLE 01/24/2019 [facility] at 0505 COMMENT: There is bibasilar atelectasis. This has definitely worsened in the left base since 01/23/2019. The endotracheal and NG tubes remain in place. The right internal jugular central venous catheter tip is just above the right atrium. IMPRESSION: Worsened bibasilar atelectasis. Electronically signed by Omar Dorsey 01/24/2019 7:01 AM
[2019-01-24 07:36] LABS: AGAP 14; BUN 5 mg/dL (8-22); CALCIUM 8.5 mg/dL (8.8-10.2); CHLORIDE 105 mmol/L (98-107); COSMO 280; CREATININE 0.5 mg/dL (0.7-1.2); ESTIMATED GFR > 60; GLUCOSE 96 mg/dL (70-104); SODIUM 142 mmol/L (136-145); TCO2 23 mmol/L (25-35)
[2019-01-24] MEDS: DIPRIVAN 1% 1,000 MG/100 ML BOTTLE IV SCH ×2 (08:50→21:31)
[2019-01-24] MEDS: OFIRMEV 1000 MG/ISOTONIC SOLN 1,000 MG/100 ML BOTTLE IV PRN ×2 (10:10→17:09)
[2019-01-24] MEDS: PEPCID IV SCH (11:20)
[2019-01-24] MEDS: VANCOMYCIN 1,750 MG in NS 250 ML IV SCH (11:20)
[2019-01-24] MEDS ORDERED: POTASSIUM CHLORIDE 40 MEQ/SWI 40 MEQ/100 ML IVPB IV ONE (12:08)
[2019-01-24] MEDS ORDERED: POTASSIUM CHLORIDE 20% LIQUID PO ONE (12:25)
[2019-01-24] MEDS ORDERED: MOTRIN NG PRN (12:33)
--- NOTE | 2019-01-24 12:58 | PROGRESS NOTE ---
DATE: 01/24/2019 SUBJECTIVE: The patient has no major complaints. He is intubated and sedated. OBJECTIVE: Vital Signs: Blood pressure 117/70, heart rate 92, respiratory rate 18, temperature was 100 degrees. It has pretty much systematically been 100 since yesterday morning, just perpetual fever. Cardiovascular: Regular rate and rhythm. Pulmonary: He has got rhonchi and wheezes. GI: Soft, nontender, nondistended. Bowel sounds are positive. He is responsive, although sedated currently. IMAGING AND LABORATORY DATA: Potassium is 3. PH 7.54, pCO2 of 26, PaO2 of 184; that is on 40%. Chest x-ray shows bibasilar atelectasis. PROBLEM LIST: 1. Acute respiratory failure. Will continue treatment, aspiration-type. Will continue antibiotics, and follow. With his persistent fevers, I am probably going to get Infectious Disease input. He is on vancomycin and Zosyn. There is probably no point in me changing his antibiotics because it probably will be changed again by Infectious Disease, although he does have methicillin-resistant staphylococcus aureus per his sputum preliminarily at this point, most likely an methicillin-resistant staphylococcus aureus-type pneumonia. 2. Encephalopathy, possibly alcohol versus other process. We are going to continue to follow closely. 3. Acute respiratory failure. He seems to be doing better. Since he has persistent fevers, we are not pursuing extubation at this point until that is resolved. 4. Disposition. Pending his clinical status. We will continue to follow. cc: Jaguar Moyer MD
[2019-01-24] MEDS: NEXIUM IV SCH (13:25)
[2019-01-24] MEDS: MUCOMYST 20% INH SCH ×2 (15:30→19:34)
[2019-01-24] MEDS: ZYVOX 600 MG/D5W 600 MG/300 ML IVPB IV SCH (17:09)
[2019-01-25] MEDS: DUONEB (A & A) INH SCH ×6 (03:15→23:00)
[2019-01-25] MEDS: ZYVOX 600 MG/D5W 600 MG/300 ML IVPB IV SCH ×2 (03:45→16:30)
[2019-01-25] MEDS: NS 1,000 ML IV SCH ×4 (04:37→18:26)
[2019-01-25] MEDS: LOVENOX SUBQ SCH ×2 (04:38→06:30)
[2019-01-25 04:51] LABS: ALLEN TEST YES; BE 3.5 mmoll (-3.0-3.0); BLOOD TYPE ARTERIAL; HCO3-(ACT) 27.7 mmoll (20.0-26.0); PCO2(98.6) 40 mmHg (35-45); PO2(98.6) 100 mmHg (60-100); SAMPLE BLOOD; SRATE 14 BPM; TVOL 500 mL; pH(98.6) 7.45 (7.35-7.45)
[2019-01-25 04:52] LABS: MODALITY VENTILATOR
--- NOTE | 2019-01-25 07:14 | Diag Imaging Result Doc PS360 ---
EXAM: CHEST-PORTABLE INDICATION: mech vent TECHNIQUE: One view COMPARISON: 01/24/2019 FINDINGS: Support tubes and lines are in stable positions. Mild bibasilar atelectasis is approximately stable. No new consolidation is identified. Cardiac silhouette is stable. IMPRESSION: Essentially stable chest. Electronically signed by Brennan Panchal 01/25/2019 7:11 AM
[2019-01-25] MEDS: DIPRIVAN 1% 1,000 MG/100 ML BOTTLE IV SCH (09:17)
--- NOTE | 2019-01-25 10:40 | PROGRESS NOTE ---
DATE: 01/25/2019 SUBJECTIVE: The patient is off sedation. He is awake, still a bit lethargic, but doing okay. OBJECTIVE: Blood pressure 129/83, heart rate of 84, respiratory rate of 16, and temperature was 99.1 degrees.Cardiovascular: Regular rate and rhythm. Pulmonary: Bilateral breath sounds. Clear to auscultation GI: Soft, nontender, and nondistended. Bowel sounds are positive. Extremities: No clubbing or cyanosis. LABORATORY DATA: I do not have any data today interestingly enough, except for blood gas pH 7.45, pCO2 42, and PO2 100. PROBLEM LIST: 1. Acute respiratory failure due to pneumonia, which was felt to be an MRSA pneumonia. We are weaning as we speak. Dr. Saldana is following. Possible extubation today so we will see how he does. 2. MRSA pneumonia with persistent fevers. Dr. Gross has changed him over to Zyvox, which has reported better affect for MRSA pneumonia specifically so we appreciate his assistance. We will continue to follow. 3. Encephalopathy that seems to be doing okay. Unclear really what triggered this event to begin with, but we will follow. DISPOSITION: Pending clinical status, but obviously we will continue to monitor closely. cc: Jaguar Moyer MD
[2019-01-25] MEDS: MORPHINE IV PRN ×2 (10:47→21:24)
[2019-01-25 10:54] LABS: BASO% 0.5 % (0.0-0.8); EOS# 0.19 X1000 (0.0-0.7); EOS% 2.1 % (0.0-10.0); HEMATOCRIT 38.4 % (42.0-52.0); HEMOGLOBIN 13.2 g/dL (14.0-18.0); IMM GRAN% 0.6 % (0.0-0.5); LYMPH# 0.95 X1000 (1.2-3.4); LYMPH% 10.7 % (20.5-51.1); MCH 36.2 PG (27-31); MCHC 34.4 g/dL (33-37); MCV 105.2 FL (81-99); MONO# 1.08 X1000 (0.11-0.59); MONO% 12.2 % (1.7-9.3); MPV 9.4 FL (7.4-10.4); NEUT# 6.56 X1000 (1.4-6.5); NEUT% 73.9 % (42.2-75.2); PLT 285 X1000 (130-400); RBC 3.65 XMIL (4.7-6.1); RDW 11.6 % (11.5-14.5); WBC 8.87 X1000 (4.8-10.8)
[2019-01-25 10:55] LABS: BASO# 0.04 X1000 (0.0-0.2); IMM GRAN# 0.05 X1000 (0.0-0.04)
[2019-01-25 11:04] LABS: ALLEN TEST YES; BE 2.5 mmoll (-3.0-3.0); BLOOD TYPE ARTERIAL; HCO3-(ACT) 26.8 mmoll (20.0-26.0); METHB 1.4 % (0.0-1.5); O2(CT) 18.1 mL/dL (15.0-23.0); O2HB 95.6 % (95.0-99.0); PCO2(98.6) 37 mmHg (35-45); PO2(98.6) 92 mmHg (60-100); SAMPLE BLOOD; SAO2 98.8 % (95.0-100.0); THB 13.4 g/dL (11.5-17.4); pH(98.6) 7.46 (7.35-7.45)
[2019-01-25 11:05] LABS: MODALITY VENTILATOR
[2019-01-25 11:09] LABS: AGAP 11; BUN 4 mg/dL (8-22); CALCIUM 8.6 mg/dL (8.8-10.2); CHLORIDE 107 mmol/L (98-107); COSMO 284; CREATININE 0.4 mg/dL (0.7-1.2); ESTIMATED GFR > 60; GLUCOSE 99 mg/dL (70-104); MAGNESIUM 1.4 mg/dL (1.5-2.7); SODIUM 144 mmol/L (136-145); TCO2 26 mmol/L (25-35)
[2019-01-25] MEDS: MUCOMYST 20% INH SCH ×2 (11:14→19:22)
[2019-01-25] MEDS: NEXIUM IV SCH (11:45)
[2019-01-25] MEDS: SODIUM CHLORIDE 0.9% INJ SCH (11:45)
[2019-01-25 11:59] LABS: HEPATITIS PROFILE ACUTE SEE COMMENTS
[2019-01-25] MEDS ORDERED: ATIVAN IV PRN (12:59)
--- NOTE | 2019-01-25 15:28 | INFECTIOUS DISEASE CONSULT REP ---
DATE: 01/25/2019 The patient is intubated and sedated and no family members are here. The information that I have obtained on the patient is from the computer records. CONCLUSION: The patient has a methicillin-resistant Staphylococcus aureus pneumonia. RECOMMENDATIONS: I have discontinued vancomycin and Zosyn, and have placed the patient on Zyvox. DISCUSSION: The patient was discharged after being admitted for alcoholism. He was readmitted and developed severe respiratory problems. He has been sent to the Intensive Care Unit and he is intubated and sedated. His CBC shows a white count of 10,410, hemoglobin of 14.9 and platelet count 377,000. Blood gases show a pH of 7.54, PO2 of 184 and PCO2 of 26. Creatinine is 0.5. GFR is greater than 60. Alkaline phosphatase is 153. The patient's most recent chest x-ray shows worsening bibasilar atelectasis. I thought when I looked at the x-ray that I think that there could be some pneumonia as well in the bases. MEDICAL HISTORY: Hypertension, gout, alcoholism. SURGICAL HISTORY: Unknown. FAMILY HISTORY: Alcoholism, plane crash killed father. SOCIAL HISTORY: Retired auto machinist, alcoholic. Home medications unknown. Thank you for the consult. cc: Albert Gross MD MTDPramod
--- NOTE | 2019-01-25 15:37 | INFECTIOUS DISEASE PROGRESS NO ---
DATE: 01/25/2019 PRESENT ILLNESS: The patient has Methicillin-resistant Staphylococcus aureus pneumonia. MEDICATIONS: The patient is receiving IV Zyvox. PHYSICAL EXAMINATION: Vital Signs: Temperature is 98.3, pulse 97, respirations 20, blood pressure 153/102. General: This is an ill appearing, middle-aged male. He is in no acute distress. Head/eyes/ears/nose/throat: There is no drainage from the nose or ears. Patient is wearing an oxygen mask. Neck: No meningismus. The patient has jugular vein catheter in place on the right side. The site is not erythematous or draining. The patient did not seem to have any pain when I passively moved his neck. Lungs: Clear to auscultation. Cardiovascular: Heart rate is regular. Abdomen: Soft and nontender. Neurologic: The patient did not respond to verbal stimuli. There was no tremor. LAB AND X-RAY: The patient's chest x-ray for today shows mild bibasilar atelectasis and no new consolidation. The patient's laboratory studies show a CBC with a white count of 8870, hemoglobin 13.2, and platelet count 285,000. The patient's blood gases show a pH of 7.46, pO2 92, and pCO2 of 37. The patient's creatinine is 0.4. GFR is greater than 60. ASSESSMENT AND PLAN: Patient has Methicillin-resistant Staphylococcus aureus pneumonia. My plan is to continue Zyvox. I think I will try to send the patient for a CT scan of the chest. COMORBIDITIES: The patient is a longtime alcoholic. cc: Albert Gross MD
[2019-01-26] MEDS: MORPHINE IV PRN (01:56)
[2019-01-26] MEDS: NS 1,000 ML IV SCH ×2 (02:12→08:30)
[2019-01-26] MEDS: DUONEB (A & A) INH SCH ×6 (03:34→23:09)
[2019-01-26] MEDS: ZYVOX 600 MG/D5W 600 MG/300 ML IVPB IV SCH ×2 (04:55→16:30)
[2019-01-26] MEDS: LOVENOX SUBQ SCH (06:12)
[2019-01-26 06:41] LABS: BASO# 0.04 X1000 (0.0-0.2); BASO% 0.3 % (0.0-0.8); HEMATOCRIT 37.4 % (42.0-52.0); HEMOGLOBIN 12.7 g/dL (14.0-18.0); LYMPH# 0.75 X1000 (1.2-3.4); LYMPH% 4.8 % (20.5-51.1); MCH 35.8 PG (27-31); MCV 105.4 FL (81-99); MONO# 1.54 X1000 (0.11-0.59); MONO% 9.9 % (1.7-9.3); MPV 10.1 FL (7.4-10.4); PLT 359 X1000 (130-400); RBC 3.55 XMIL (4.7-6.1); RDW 11.5 % (11.5-14.5); WBC 15.55 X1000 (4.8-10.8)
[2019-01-26 06:44] LABS: AGAP 13; BUN 4 mg/dL (8-22); CALCIUM 8.7 mg/dL (8.8-10.2); CHLORIDE 106 mmol/L (98-107); COSMO 285; CREATININE 0.5 mg/dL (0.7-1.2); ESTIMATED GFR > 60; GLUCOSE 89 mg/dL (70-104); POTASSIUM 3.1 mmol/L (3.5-5.1); SODIUM 145 mmol/L (136-145); TCO2 26 mmol/L (25-35)
[2019-01-26 07:11] LABS: BANDS 4 % (0-1); EOS 2 % (1-10); MONO 4 % (1-9); SEGS 78 % (42-75)
--- NOTE | 2019-01-26 07:28 | Diag Imaging Result Doc PS360 ---
CHEST-PORTABLE - 01/26/2019 INDICATION: mech vent COMPARISON: 01/25/2019 FINDINGS: The endotracheal tube is no longer present. Stable right central line and nasogastric tube in good position. There is worsening in the hazy right lower lobe infiltrate. The left lung base has improved. Heart size and pulmonary vascularity is top normal. No pneumothorax or significant pleural effusion. IMPRESSION: Endotracheal tube no longer visible. Shifting opacities in the lung bases. Worsening right lower lobe infiltrate concerning for pneumonia. Electronically signed by Jad Mathew 01/26/2019 7:25 AM
[2019-01-26] MEDS: MUCOMYST 20% INH SCH ×2 (07:56→19:25)
[2019-01-26] MEDS: ZOSYN 3.375 GM in NS 50 ML IV SCH ×2 (09:15→17:09)
[2019-01-26] MEDS ORDERED: POTASSIUM CHLORIDE 40 MEQ/SWI 40 MEQ/100 ML IVPB IV ONE (10:40)
[2019-01-26] MEDS ORDERED: NS 1,000 ML IV SCH (11:05)
[2019-01-26] MEDS: LASIX IV SCH (11:23)
[2019-01-26] MEDS: CLINIMIX E 4.25%-5% SOLUTION 1,000 ML IV SCH (11:23)
[2019-01-26] MEDS: SODIUM CHLORIDE 0.9% INJ SCH (12:11)
[2019-01-26] MEDS: NEXIUM IV SCH (12:11)
--- NOTE | 2019-01-26 13:07 | PROVIDER PROGRESS NOTE ---
Progress Note Evaluation time: 01/26/2019 SUBJECTIVE: Patient is awake with no acute distress. He is breathing through a BiPAP mask. He denies pain. OBJECTIVE: Vital Signs: Temperature 99.1 degree, BP 140/84, W[place] 98, RR 16, and SaO2 98% on BiPAP with FiO2 30% and pressure 12/6. General: lying in bed with no acute distress; appear tired HEENT: Atraumatic, normocephalic. Trachea midline. Respiratory: Breathing even and unlabored, auscultation reveals diminished breathing sounds. Cardiovascular: Regular rate and rhythm. Gastrointestinal: Soft, nondistended. Normoactive bowel sounds in all 4 quadrants. Extremities: Trace edema. No cyanosis. No clubbing. Dorsalis pedis 2+ bilaterally. Neurologic: Awake, able to follow simple commands LAB DATA: White blood cells 15.55, hemoglobin 12.7, hematocrit 37.4, platelet count 359. Sodium 145, potassium 3.1, chloride 106, carbon dioxide 26, BUN 4, creatinine 0.5, glucose 89. IMAGING DATA: Chest x-ray shows shifting opacities in the lung bases. Worsening right lower lobe infiltrate concerning for pneumonia. ASSESSMENT: 1. Acute hypoxic respiratory failure, extubated yesterday. 2. MRSA pneumonia. 2. Alcoholism with alcohol withdrawal. 3. Significant hepatic steatosis. 4. Encephalopathy. Improved PLAN: 1. Continue supplemental oxygen and BiPAP as needed. 2. Continue antibiotics per Dr. Gross and bronchodilators. 3. Follow up with complete blood count, basic metabolic panel and chest x- ray. Check ABG if indicated. 4. Continue gastrointestinal and deep venous thrombosis prophylaxis. Thank you for the consult! (Tyree Armendariz) Joint Evaluation as above 30 minutes (Maddie Saldana I.)
--- NOTE | 2019-01-26 13:41 | Diag Imaging Result Doc PS360 ---
CT THORAX W/O CONTRAST - 01/26/2019 INDICATION: pneumonia COMPARISON: Prior chest x-rays FINDINGS: There is a right central line and nasogastric tube in good position. There is no adenopathy. Heart and great vessels are normal. There are small bilateral pleural effusions. There is extensive consolidation of the basilar segments of the right lower lobe. Elsewhere, there is patchy infiltrate throughout the right upper and middle lobes, and the superior segment of the right lower lobe as well. The left lung is clear of infiltrate. Upper abdominal images are unremarkable. There are moderate degenerative changes of the spine. No acute or suspicious bony lesion. IMPRESSION: Multilobar right-sided pneumonia, worst in the basilar right lower lobe. Small bilateral pleural effusions. This exam was performed using automated exposure control, adjustment of mA or kV according to patient size, and/or use of iterative reconstruction technique Electronically signed by Jad Mathew 01/26/2019 1:38 PM
--- NOTE | 2019-01-26 14:13 | PROGRESS NOTE ---
DATE: 01/26/2019 SUBJECTIVE: The patient is very weak and altered. He just looks very sedated. I am not quite sure why he is so altered. He was put on some Ativan. May need to switch him to haloperidol. He is not maintaining as well as he was yesterday. OBJECTIVE: Vital Signs: Blood pressure 143/86, heart rate is 100, respiratory rate is 17, and temperature 99, O2 saturation 98% on 3 L. Cardiovascular: Regular rate and rhythm. Pulmonary: Bilateral breath sounds. Clear to auscultation GI: Soft, nontender, and nondistended. Bowel sounds are positive. LABORATORY DATA: White count is up to 15, hemoglobin 12, hematocrit 37, platelets 359,000. Potassium 3.1. IMAGING: Chest x-ray shows worsening pneumonia in the right base. PROBLEM LIST: 1. Right lower lobe pneumonia. He is on broad spectrum antibiotics with Zyvox and now Zosyn, per Dr. Saldana, possibly for aspiration coverage. We will continue his pulmonary toilet. He is just so weak, I am worried about good pulmonary toilet. He is on Mucomyst and DuoNebs. Will try to do some chest physical therapy and see how he does. We really do need to try to get him up out of bed too. 2. Encephalopathy. Is still kind of up and down. He seems a little bit more agitated today. I am just going to switch him from Ativan to Haldol and see how he does. 3. Acute respiratory failure. He is improving. He has been extubated. Continue to follow. 4. Hypokalemia. We will supplement and follow. DISPOSITION: Most likely will need some form of rehab and continue to monitor closely. cc: Jaguar Moyer MD
--- NOTE | 2019-01-26 15:16 | INFECTIOUS DISEASE PROGRESS NO ---
DATE: 01/26/2019 PRESENT ILLNESS: Mr. Breaux is being treated for methicillin-resistant Staphylococcus aureus pneumonia. MEDICATIONS: He is receiving Zyvox 600 mg IV every 12 hours. Today is day 2. PHYSICAL EXAMINATION: Vital Signs: Temperature is 99 degrees, pulse rate 100, respiratory rate 17, blood pressure 143/86, O2 saturation is 98% on 3 L nasal cannula. General: This is a critically ill-appearing, middle-aged gentleman. He is lying in the bed, currently in no acute distress. HEENT: There is some facial redness noted which may be from previous mask. Oral mucous membranes are pink and moist. Conjunctivae are pink. Respiratory: Lung sounds have coarse wheezes noted on the right. Clear on the left. Diminished in the bases. Cardiovascular: Heart rate and rhythm are regular and fast at times. Sinus tachycardia on the monitor. Abdomen: Soft, round, and nontender. There is an NG tube in place to low intermittent wall suction. Neurologic: He is drowsy and lethargic but arousable. He will open his mouth and eyes to request but not moving his extremities at this time. LABORATORY AND X-RAY: Today, his white count is 15.55, hemoglobin 12.7, platelet count 359,000. Creatinine is 0.5. Estimated GFR is greater than 60. There is a methicillin- resistant Staphylococcus aureus in his sputum. A chest CT from earlier today showed a multilobar right- sided pneumonia, worse in the right base, with small, bilateral pleural effusions. Chest x-ray done earlier this morning shows shifting opacities in the lung bases, worsening to the right lower lobe infiltrate, concerning for pneumonia. ASSESSMENT AND PLAN: Mr. Breaux is being treated for a methicillin-resistant Staphylococcus aureus pneumonia on the right side. He is receiving Zyvox, which we will continue at this time. He has also been started on Zosyn by Dr. Saldana. These plans have been discussed with and recommended by Dr. Gross. COMORBIDITIES: For Mr. Breaux include chronic alcoholism. Dictated by CARMELLA Felix for Albert Gross MD cc: Albert Gross MD [facility]
[2019-01-27] MEDS: CLINIMIX E 4.25%-5% SOLUTION 1,000 ML IV SCH ×2 (01:12→15:02)
[2019-01-27] MEDS: ZOSYN 3.375 GM in NS 50 ML IV SCH ×3 (01:12→17:08)
[2019-01-27] MEDS: DUONEB (A & A) INH SCH ×6 (03:14→23:06)
[2019-01-27 04:48] LABS: ALLEN TEST YES; BE 10.8 mmoll (-3.0-3.0); BLOOD TYPE ARTERIAL; HCO3-(ACT) 33.3 mmoll (20.0-26.0); METHB 1.3 % (0.0-1.5); O2(CT) 17.2 mL/dL (15.0-23.0); O2HB 95.9 % (95.0-99.0); PCO2(98.6) 39 mmHg (35-45); PO2(98.6) 89 mmHg (60-100); SAMPLE BLOOD; SAO2 98.9 % (95.0-100.0); THB 12.7 g/dL (11.5-17.4); pH(98.6) 7.55 (7.35-7.45)
[2019-01-27 04:49] LABS: MODALITY CANNULA
[2019-01-27] MEDS: ZYVOX 600 MG/D5W 600 MG/300 ML IVPB IV SCH ×2 (04:58→15:02)
[2019-01-27] MEDS: LOVENOX SUBQ SCH (05:05)
[2019-01-27 06:06] LABS: BASO# 0.03 X1000 (0.0-0.2); BASO% 0.3 % (0.0-0.8); EOS# 0.19 X1000 (0.0-0.7); EOS% 1.7 % (0.0-10.0); HEMATOCRIT 37.2 % (42.0-52.0); HEMOGLOBIN 12.9 g/dL (14.0-18.0); IMM GRAN# 0.04 X1000 (0.0-0.04); IMM GRAN% 0.4 % (0.0-0.5); LYMPH# 1.09 X1000 (1.2-3.4); LYMPH% 9.8 % (20.5-51.1); MCH 35.7 PG (27-31); MCHC 34.7 g/dL (33-37); MONO# 1.27 X1000 (0.11-0.59); MONO% 11.4 % (1.7-9.3); MPV 9.6 FL (7.4-10.4); NEUT# 8.48 X1000 (1.4-6.5); NEUT% 76.4 % (42.2-75.2); PLT 364 X1000 (130-400); RBC 3.61 XMIL (4.7-6.1); RDW 11.2 % (11.5-14.5)
[2019-01-27 06:26] LABS: MAGNESIUM 1.5 mg/dL (1.5-2.7); PHOSPHORUS 2.4 mg/dL (2.7-4.5)
[2019-01-27 06:40] LABS: AGAP 11; BUN 8 mg/dL (8-22); CHLORIDE 101 mmol/L (98-107); COSMO 283; CREATININE 0.4 mg/dL (0.7-1.2); ESTIMATED GFR > 60; GLUCOSE 125 mg/dL (70-104); POTASSIUM 3.1 mmol/L (3.5-5.1); SODIUM 142 mmol/L (136-145); TCO2 30 mmol/L (25-35)
--- NOTE | 2019-01-27 07:22 | Diag Imaging Result Doc PS360 ---
EXAM: CHEST-PORTABLE HISTORY: mech vent TECHNIQUE: Portable chest single view COMPARISON: 01/26/2019 FINDINGS: No change in the right jugular line or the nasogastric tube. There are increased interstitial markings in the lower right lung. These are slightly less prominent than on the prior study. No pleural effusions identified. No cardiomegaly. IMPRESSION: Mild interval improvement. Electronically signed by Rahul Whittaker 01/27/2019 7:19 AM
[2019-01-27] MEDS: LASIX IV SCH (08:00)
[2019-01-27] MEDS: MUCOMYST 20% INH SCH ×2 (08:54→20:01)
[2019-01-27] MEDS ORDERED: POTASSIUM PHOSPHATE 40 MEQ in NS 250 ML IV ONE (10:09)
--- NOTE | 2019-01-27 10:30 | PROGRESS NOTE ---
DATE: 01/27/2019 OBJECTIVE: Vital Signs: Blood pressure is 140/88, heart rate 97, respiratory rate 20, temperature 98.8 degrees, saturating 97% on room air. Cardiovascular: Regular rate and rhythm. Pulmonary: Bilateral breath sounds clear with rhonchi. GI: Soft, nontender, nondistended. Bowel sounds are positive. IMAGING AND LABORATORY DATA: White count 11, hemoglobin and hematocrit 12 and 37, platelets 364,000. PH 7.55, pCO2 of 39, PaO2 of 89. Potassium 3.1. Phosphorus 2.4. Chest x-ray shows improvement in his right lower lobe pneumonia. PROBLEM LIST: 1. Methicillin-resistant staphylococcus aureus pneumonia of the right lower lobe. He is on Zyvox and Zosyn, and seems to be improved. He did have a little bit of fever. His white count has come down. Clinically, he looks improved. Appreciate Dr. Gross and Dr. Saldana. Continue pulmonary toilet. He is very weak. 2. Encephalopathy, history of alcohol abuse. He seems like he is coming around a bit. Will continue to monitor. So far, no significant agitation. 3. Acute on chronic respiratory failure, likely has some underlying chronic obstructive pulmonary disease. He has been extubated. He seems like he is slowly improving. Continue to wean oxygen. 4. Hypokalemia, hypophosphatemia. We will supplement and follow. 5. Moderate protein calorie malnutrition. He has not really been eating very much. He is currently on some Clinimix. The goal is really to try to see if we can get him to take in by mouth. I am going to start cycling his nasogastric tube off. Will get Speech Therapy to evaluate for any aspiration risk and work on starting to try to give him by mouth. 6. Disposition. He will likely need some long-term care rehab or such. We are looking at long- term acute care as an option and other rehab options. We will continue to follow closely. cc: Jaguar Moyer MD
[2019-01-27] MEDS: NEXIUM IV SCH (13:10)
--- NOTE | 2019-01-27 15:31 | INFECTIOUS DISEASE PROGRESS NO ---
DATE: 01/27/2019 PRESENT ILLNESS: The patient has methicillin-resistant Staph aureus pneumonia. MEDICATIONS: This is day 3 of treatment with Zyvox. Yesterday Dr. Saldana added Zosyn. PHYSICAL EXAMINATION: Vital Signs: Temperature is 99.1 degrees, pulse 94, respirations 16, blood pressure 114/82. Generally: An ill-appearing middle-aged male. He is in bed. He is in no acute distress. Head, eyes, ears, nose, and throat: It appears he can hear my spoken words and see near objects. I did not see any white patches in his mouth. The patient has a nasogastric tube in place. Neck: Patient has a right internal jugular venous catheter in place. The site is not erythematous or purulent. Lungs: Clear to auscultation. Cardiovascular: Heart rate is regular. Abdomen: Soft and nontender. Neurologic: The patient is awake. He does talk but I cannot understand what he is saying. He did not follow request to move his extremities. The patient does not have a tremor. LAB AND RADIOLOGY: CBC-WBC 11.1, hgb 12.9, platelets 364K. Creatinine-0.4. GFR- > 60. Chest x-ray-less basilar interstitial markings. ASSESSMENT AND PLAN: The patient has methicillin-resistant Staph aureus pneumonia. I plan on continuing Zyvox. COMORBIDITIES: The patient is a chronic alcoholic. cc: Albert Gross MD [facility]
[2019-01-28] MEDS: HALDOL IV PRN ×4 (00:24→23:44)
[2019-01-28] MEDS: ZOSYN 3.375 GM in NS 50 ML IV SCH ×4 (00:24→23:44)
[2019-01-28] MEDS ORDERED: ATIVAN IV ONE (02:13)
[2019-01-28] MEDS: ZYVOX 600 MG/D5W 600 MG/300 ML IVPB IV SCH ×2 (02:48→15:17)
[2019-01-28] MEDS: DUONEB (A & A) INH SCH ×2 (03:42→08:09)
[2019-01-28 04:41] LABS: ALLEN TEST YES; BE 10.5 mmoll (-3.0-3.0); BLOOD TYPE ARTERIAL; METHB 1.8 % (0.0-1.5); O2(CT) 21.4 mL/dL (15.0-23.0); O2HB 94.9 % (95.0-99.0); PCO2(98.6) 41 mmHg (35-45); PO2(98.6) 90 mmHg (60-100); SAMPLE BLOOD; SAO2 98.2 % (95.0-100.0); pH(98.6) 7.53 (7.35-7.45)
[2019-01-28 04:44] LABS: MODALITY CANNULA
[2019-01-28] MEDS: CLINIMIX E 4.25%-5% SOLUTION 1,000 ML IV SCH ×2 (06:06→21:44)
[2019-01-28] MEDS: LOVENOX SUBQ SCH (06:06)
[2019-01-28 06:31] LABS: HEMATOCRIT 38.5 % (42.0-52.0); HEMOGLOBIN 13.5 g/dL (14.0-18.0); LYMPH% 8.9 % (20.5-51.1); MCH 36.1 PG (27-31); MCHC 35.1 g/dL (33-37); MCV 102.9 FL (81-99); MPV 9.9 FL (7.4-10.4); NEUT% 77.6 % (42.2-75.2); PLT 443 X1000 (130-400); RBC 3.74 XMIL (4.7-6.1); RDW 11.1 % (11.5-14.5); WBC 11.72 X1000 (4.8-10.8)
[2019-01-28 06:32] LABS: BASO# 0.03 X1000 (0.0-0.2); BASO% 0.3 % (0.0-0.8); EOS# 0.11 X1000 (0.0-0.7); EOS% 0.9 % (0.0-10.0); IMM GRAN# 0.04 X1000 (0.0-0.04); IMM GRAN% 0.3 % (0.0-0.5); LYMPH# 1.04 X1000 (1.2-3.4); MONO# 1.41 X1000 (0.11-0.59); NEUT# 9.09 X1000 (1.4-6.5)
[2019-01-28 06:54] LABS: AGAP 11; BUN 11 mg/dL (8-22); CALCIUM 9.3 mg/dL (8.8-10.2); CHLORIDE 97 mmol/L (98-107); COSMO 277; CREATININE 0.5 mg/dL (0.7-1.2); ESTIMATED GFR > 60; GLUCOSE 130 mg/dL (70-104); POTASSIUM 3.6 mmol/L (3.5-5.1); SODIUM 138 mmol/L (136-145); TCO2 30 mmol/L (25-35)
--- NOTE | 2019-01-28 07:11 | Diag Imaging Result Doc PS360 ---
CHEST-PORTABLE - 01/28/2019 INDICATION: mech vent COMPARISON: 01/27/2019 FINDINGS: Support line and tube are stable. There is improvement in the infiltrate in the right lower lobe with better visualization of the right hemidiaphragm. There is still some patchy infiltrate or atelectasis here. The left lung remains clear. Heart size remains top normal. IMPRESSION: Improvement in the right basilar infiltrate/pneumonia. Electronically signed by Jad Mathew 01/28/2019 7:09 AM
[2019-01-28 07:16] LABS: ALB/GLOB RATIO 0.7; ALBUMIN 2.9 g/dL (3.5-5.0); DIRECT BILIRUBIN 0.4 mg/dL (0.00-0.20); TOTAL PROTEIN 6.8 g/dL (6.3-8.3)
[2019-01-28] MEDS: MUCOMYST 20% INH SCH ×2 (08:09→19:36)
[2019-01-28] MEDS: LASIX IV SCH (08:24)
[2019-01-28] MEDS: OFIRMEV 1000 MG/ISOTONIC SOLN 1,000 MG/100 ML BOTTLE IV PRN ×2 (10:50→21:45)
[2019-01-28] MEDS ORDERED: NS NEB INH SCH (11:00)
[2019-01-28] MEDS: ATROVENT NEB INH SCH ×4 (11:20→22:41)
[2019-01-28] MEDS: XOPENEX NEB INH SCH ×4 (11:21→22:41)
--- NOTE | 2019-01-28 11:31 | PROGRESS NOTE ---
DATE: 01/28/2019 SUBJECTIVE: The patient is more awake, alert, but he is still very confused. He has got garbled speech. I really cannot understand what he is trying to communicate but he is trying to communicate. He does track. OBJECTIVE: Blood pressure 146/95, heart rate of 121, respiratory rate of 22, temperature is 100.2 degrees. He is starting to have fevers again, unfortunately, low-grade but present. Cardiovascular: Tachycardic. Pulmonary: Rhonchorous breath sounds with upper airway noise. GI: Soft, nontender, nondistended. Bowel sounds were positive. Laboratory Data: White count is 11, hemoglobin and hematocrit 13 and 38, platelets 443,000. PH 7.53, pCO2 of 41, PaO2 of 90. Potassium is up to 3.6, creatinine still 0.5. Chest x-ray shows improvement. ASSESSMENT AND PLAN: 1. Methicillin-resistant Staphylococcus aureus pneumonia, right lower lobe. We will continue Zyvox and Zosyn. He is on day 5 of Zyvox and day 3 of Zosyn. Continue pulmonary toilet. Explore for other reasons for fever and follow. 2. Encephalopathy. He is more alert but still not at baseline. Unclear really what caused all this occurrence. If he is not much more awake in the next 24 hours, think we may need to get a head CT. 3. Acute respiratory failure. He is extubated. We are weaning him off oxygen, BiPAP. Pulmonary is following. 4. Hypokalemia. That is correcting. 5. Moderate protein calorie malnutrition. He is on Clinimix. We are getting speech evaluation to decide about the feasibility of letting him eat. We will continue to follow. cc: Jaguar Moyer MD
[2019-01-28] MEDS: SODIUM CHLORIDE 0.9% INJ SCH (15:17)
[2019-01-28] MEDS: NEXIUM IV SCH (15:17)
--- NOTE | 2019-01-28 20:49 | INFECTIOUS DISEASE PROGRESS NO ---
DATE: 01/28/2019 PRESENT ILLNESS: The patient has a methicillin-resistant Staph aureus pneumonia. MEDICATIONS: This is day 4 of treatment with Zyvox, and Zosyn is day 3. It was ordered by Dr. Saldana. PHYSICAL EXAMINATION: Vital Signs: Temperature is 100.4 degrees, pulse respirations 17, blood pressure 93/60. General: This is an ill-appearing, middle-aged male. The patient is more alert and does not appear to be in any acute distress. Head, Eyes, Ears, Nose and Throat: He can hear my spoken words. He can hear my spoken words. I was unable to test how good his vision is. Neck: No pain with movement of it. The patient has a right internal jugular venous catheter in place. The site is not erythematous or purulent. Lungs: Clear to auscultation. Cardiovascular: Heart rate is regular. Abdomen: Soft and nontender. Neurologic: The patient is awake today. He did follow some requests to move his extremities. When he did talk it was hard for me to understand what he was saying. LABORATORY AND RADIOLOGY: Chest x-ray shows improvement in the right lower lobe pneumonia. Blood cultures are pending. Liver function studies are normal. Creatinine is 0.5. GFR is greater than 60. Blood gases show a pH of 7.53. Creatinine is 90. CO2 is 41. CBC shows a white count of 11,720, hemoglobin 13.5, platelet count 443,000. ASSESSMENT AND PLAN: The patient has methicillin-resistant Staph aureus pneumonia. I plan on continuing Zyvox. COMORBIDITIES: The patient is an alcoholic. cc: Albert Gross MD
[2019-01-29] MEDS: ATROVENT NEB INH SCH ×6 (03:11→23:34)
[2019-01-29] MEDS: XOPENEX NEB INH SCH ×6 (03:11→23:34)
[2019-01-29] MEDS: ZYVOX 600 MG/D5W 600 MG/300 ML IVPB IV SCH (04:02)
[2019-01-29 06:43] LABS: BASO# 0.06 X1000 (0.0-0.2); BASO% 0.8 % (0.0-0.8); HEMATOCRIT 37.6 % (42.0-52.0); HEMOGLOBIN 13.2 g/dL (14.0-18.0); LYMPH# 1.27 X1000 (1.2-3.4); LYMPH% 16.6 % (20.5-51.1); MCH 35.6 PG (27-31); MCHC 35.1 g/dL (33-37); MCV 101.3 FL (81-99); MONO# 1.15 X1000 (0.11-0.59); MONO% 15.1 % (1.7-9.3); MPV 9.2 FL (7.4-10.4); PLT 443 X1000 (130-400); RBC 3.71 XMIL (4.7-6.1); WBC 7.63 X1000 (4.8-10.8)
[2019-01-29 06:44] LABS: AGAP 14; BUN 11 mg/dL (8-22); CALCIUM 9.4 mg/dL (8.8-10.2); CHLORIDE 95 mmol/L (98-107); COSMO 277; CREATININE 0.5 mg/dL (0.7-1.2); ESTIMATED GFR > 60; GLUCOSE 126 mg/dL (70-104); MAGNESIUM 1.7 mg/dL (1.5-2.7); PHOSPHORUS 2.8 mg/dL (2.7-4.5); POTASSIUM 3.2 mmol/L (3.5-5.1); SODIUM 138 mmol/L (136-145); TCO2 29 mmol/L (25-35)
[2019-01-29] MEDS: LOVENOX SUBQ SCH (06:52)
[2019-01-29] MEDS: MUCOMYST 20% INH SCH ×2 (08:01→19:33)
[2019-01-29] MEDS: DOXYCYCLINE PO SCH ×2 (09:05→21:18)
[2019-01-29] MEDS: LASIX IV SCH (09:05)
[2019-01-29] MEDS: HALDOL IV PRN (09:06)
[2019-01-29] MEDS ORDERED: POTASSIUM CHLORIDE 40 MEQ/SWI 40 MEQ/100 ML IVPB IV ONE (09:45)
[2019-01-29] MEDS: CLINIMIX E 4.25%-5% SOLUTION 1,000 ML IV SCH (10:52)
--- NOTE | 2019-01-29 11:49 | Diag Imaging Result Doc PS360 ---
CT HEAD W/O CONTRAST - 01/29/2019 INDICATION: ams COMPARISON: None FINDINGS: There are small bilateral slightly hyperdense subdural collections, right greater than left. This measures about 12 mm on the right in about 6 mm on the left. There is overall mild to moderate cerebral atrophy. No herniation or midline shift. The ventricles are all normal. The skull is intact. The sinuses, mastoids, and middle ears are clear. IMPRESSION: Bilateral subacute to chronic subdural hemorrhages. This exam was performed using automated exposure control, adjustment of mA or kV according to patient size, and/or use of iterative reconstruction technique Electronically signed by Jad Mathew 01/29/2019 11:46 AM
[2019-01-29] MEDS: POTASSIUM CHLORIDE 20 MEQ, MAGNESIUM SULFATE 2 GM, THIAMINE 100 MG, FOLIC ACID 1 MG, M.... IV SCH ×6 (12:42)
[2019-01-29] MEDS ORDERED: BLISTEX MEDICATED BERRY LIP BALM TOP PRN (12:44)
--- NOTE | 2019-01-29 12:54 | PROGRESS NOTE ---
DATE: 01/29/2019 SUBJECTIVE: The patient has no major complaints. OBJECTIVE: Blood pressure is 161/105, heart rate of 101, respiratory rate, temperature 97.7 degrees, 98% on 2 L.Cardiovascular: Tachy. Pulmonary: Bilateral breath sounds clear to auscultation. GI: Soft, nontender, nondistended. Bowel sounds are positive. LABORATORY DATA: Today, his white count is 7, which is an improvement. Hemoglobin and hematocrit 13 and 37, platelets of 443,000. Chemistries, potassium a little low at 3.2. PROBLEM LIST: 1. MRSA pneumonia, right lower lobe. He is now on doxycycline, day 1 per Infectious Disease. Appreciate their input. He is much improved. 2. Encephalopathy is persistent now. Every day, he is a little bit more alert but he is confused. This may just be ICU psychosis. I am concerned about Wernicke's encephalopathy, Korsakoff's psychosis, but we will see how things look. I am going to get a head CT. If he is not much improved we may get a neuro consult. I will resume his thiamine and folate. 3. Acute respiratory failure. He is extubated. He seems to be doing okay from that standpoint. 4. Hypokalemia. We will continue to supplement. Check magnesium levels. 5. Moderate protein calorie malnutrition. He is on Clinimix. We will continue to monitor closely. DISPOSITION: Once he is kind of stabilized, we will give him medications and follow. We are looking at LTAC evaluation when stable. cc: Jaguar Moyer MD
[2019-01-29] MEDS: SODIUM CHLORIDE 0.9% INJ SCH (17:00)
[2019-01-29] MEDS: NEXIUM IV SCH (17:00)
--- NOTE | 2019-01-29 17:27 | INFECTIOUS DISEASE PROGRESS NO ---
DATE: 01/29/2019 PRESENT ILLNESS: Patient has a methicillin-resistant Staph aureus right lower lobe pneumonia. MEDICATIONS: This is day 5 of treatment with Zyvox. This is day 4 of treatment with Zosyn which was ordered by Dr. Saldana. PHYSICAL EXAMINATION: Vital Signs: Temperature is 97.7 degrees, pulse 101, respirations 17, blood pressure 161/105. General: This is an ill-appearing, middle-aged male. He does not appear to be in any acute distress. Head/eyes/ears/nose/throat: He can hear my spoken words. He can see near objects. I did not see any white coating on his tongue. Neck: The patient moved his neck without apparent pain. The patient has a right-sided internal jugular vein catheter in place. The site is not erythematous or purulent. Lungs: Clear to auscultation. Cardiovascular: Heart rate is regular. Abdomen: Soft and nontender. Neurologic: The patient is awake today. He followed my request to move his extremities. He did talk but it was hard for me to understand what he was saying. LAB AND X-RAY: The patient's chest x-ray shows a clear left lung and improvement in the right lower lobe infiltrate. Creatinine is 0.5. GFR is greater than 60. CBC shows a white count of 7630, hemoglobin 13.2, and platelet count 443,000. ASSESSMENT AND PLAN: Patient has methicillin-resistant Staph aureus pneumonia. I have discontinued Zyvox and Zosyn and instead place the patient on p.o. doxycycline. COMORBIDITIES: The patient is an alcoholic. cc: Albert Gross MD
[2019-01-30] MEDS: XOPENEX NEB INH SCH ×6 (03:42→23:14)
[2019-01-30] MEDS: ATROVENT NEB INH SCH ×5 (03:42→23:14)
[2019-01-30] MEDS: CLINIMIX E 4.25%-5% SOLUTION 1,000 ML IV SCH ×2 (05:47→14:35)
[2019-01-30 06:42] LABS: BASO# 0.08 X1000 (0.0-0.2); BASO% 0.8 % (0.0-0.8); EOS# 0.16 X1000 (0.0-0.7); EOS% 1.6 % (0.0-10.0); HEMATOCRIT 39.3 % (42.0-52.0); HEMOGLOBIN 13.8 g/dL (14.0-18.0); IMM GRAN# 0.09 X1000 (0.0-0.04); IMM GRAN% 0.9 % (0.0-0.5); LYMPH# 1.25 X1000 (1.2-3.4); LYMPH% 12.5 % (20.5-51.1); MCH 35.9 PG (27-31); MCHC 35.1 g/dL (33-37); MCV 102.3 FL (81-99); MPV 9.6 FL (7.4-10.4); NEUT# 6.95 X1000 (1.4-6.5); NEUT% 69.2 % (42.2-75.2); PLT 496 X1000 (130-400); RBC 3.84 XMIL (4.7-6.1); WBC 10.03 X1000 (4.8-10.8)
--- NOTE | 2019-01-30 07:14 | Diag Imaging Result Doc PS360 ---
EXAM: CHEST-PORTABLE HISTORY: dyspnea TECHNIQUE: Portable chest single view COMPARISON: 01/28/2019 FINDINGS: The lungs are well expanded. No cardiomegaly. No change in the right jugular line. The nasogastric tube has been removed. New complete clearing of the right basilar infiltrates. No pleural effusions identified. IMPRESSION: Interval improvement. Electronically signed by Rahul Whittaker 01/30/2019 7:12 AM
[2019-01-30] MEDS: MUCOMYST 20% INH SCH ×2 (07:47→19:13)
[2019-01-30 07:54] LABS: AGAP 17; BUN 12 mg/dL (8-22); CALCIUM 9.4 mg/dL (8.8-10.2); CHLORIDE 97 mmol/L (98-107); COSMO 272; CREATININE 0.5 mg/dL (0.7-1.2); ESTIMATED GFR > 60; GLUCOSE 105 mg/dL (70-104); POTASSIUM 3.9 mmol/L (3.5-5.1); SODIUM 136 mmol/L (136-145); TCO2 22 mmol/L (25-35)
[2019-01-30] MEDS: LASIX IV SCH (09:35)
[2019-01-30] MEDS: HALDOL IV PRN ×2 (09:35→20:08)
[2019-01-30] MEDS: DOXYCYCLINE PO SCH ×2 (09:35→20:06)
[2019-01-30] MEDS: POTASSIUM CHLORIDE 20 MEQ, MAGNESIUM SULFATE 2 GM, THIAMINE 100 MG, FOLIC ACID 1 MG, M.... IV SCH ×6 (12:55)
--- NOTE | 2019-01-30 13:27 | PROGRESS NOTE ---
DATE: 01/30/2019 SUBJECTIVE: The patient has no major complaints. OBJECTIVE: Blood pressure is 136/97, heart rate 114, respiratory rate 17, temperature was 99 degrees.Cardiovascular: Tachy. Pulmonary: Bilateral breath sounds. Occasional rhonchi. GI: Soft, nontender, nondistended. Bowel sounds are positive. LABORATORY DATA: White count 10, hemoglobin and hematocrit 13 and 39, platelets 496,000. Potassium 3.9. PROBLEM LIST: 1. MRSA pneumonia, right lower lobe. He is on doxycycline. This will be the 2nd day. Dr. Gross is following. 2. Encephalopathy, likely multifactorial. It is now found out that he has subdural hematomas bilateral, one that is almost 12 mm. Unclear how much is acute and not acute. I do not think these are things that have developed since admission. At least a good portion of them are chronic, so this is something that has happened at home. We will get Neurology to evaluate when available. I will get neurosurgery at [place] to evaluate his scans and see if there are any treatment options available. We will continue thiamine and folate and follow. 3. Acute respiratory failure. He is on O2 and weaning. 4. Hypokalemia that is stable. 5. Moderate protein calorie malnutrition. He is on Clinimix, banana bag. DISPOSITION: We are looking at LTAC versus rehab options. I discussed the subdural hematoma findings with his daughter, Liz, who lives in [place], and about poor prognosis from a neurological standpoint potentially or at least very slow recovery. Hold anti-platelet therapy and then we will see how he does. I am going to see how he does long-term but obviously there is a concern there. cc: Jaguar Moyer MD
[2019-01-30] MEDS: LOPRESSOR PO SCH ×2 (14:52→20:06)
[2019-01-30] MEDS: PHENOBARBITAL IV SCH ×2 (22:16→23:10)
[2019-01-31] MEDS: PHENOBARBITAL IV SCH (01:18)
[2019-01-31] MEDS: HALDOL IV PRN (02:07)
[2019-01-31] MEDS: LOPRESSOR PO SCH ×4 (02:07→20:06)
[2019-01-31] MEDS: XOPENEX NEB INH SCH ×6 (03:24→23:43)
[2019-01-31] MEDS: ATROVENT NEB INH SCH ×6 (03:24→23:43)
--- NOTE | 2019-01-31 05:32 | Diag Imaging Result Doc PS360 ---
EXAM: CT HEAD W/O CONTRAST HISTORY: swelling TECHNIQUE: CT head without contrast COMPARISON: 01/29/2019 FINDINGS: There is relatively hypodense subdural fluid collections similar to the prior exam. No parenchymal hemorrhage. No subarachnoid hemorrhage. Mild atrophy. No midline shift. No hydrocephalus. No sinus opacification. IMPRESSION: Stable exam. A preliminary report was given at 12:41 AM This exam was performed using automated exposure control, adjustment of mA or kV according to patient size, and/or use of iterative reconstruction technique. Electronically signed by Rahul Whittaker 01/31/2019 5:29 AM
--- NOTE | 2019-01-31 05:57 | Diag Imaging Result Doc PS360 ---
EXAM: CHEST-PORTABLE HISTORY: dyspnea TECHNIQUE: Portable chest single view COMPARISON: 01/30/2019 FINDINGS: The lungs are well expanded. The heart is not enlarged. Right jugular line is unchanged. No pneumothorax. The vessels are not distended. There are no infiltrates. No effusion identified. IMPRESSION: Stable chest. Electronically signed by Rahul Whittaker 01/31/2019 5:55 AM
[2019-01-31 06:00] LABS: BASO# 0.12 X1000 (0.0-0.2); EOS# 0.32 X1000 (0.0-0.7); EOS% 2.6 % (0.0-10.0); HEMATOCRIT 40.5 % (42.0-52.0); HEMOGLOBIN 13.8 g/dL (14.0-18.0); IMM GRAN# 0.09 X1000 (0.0-0.04); IMM GRAN% 0.7 % (0.0-0.5); LYMPH# 1.33 X1000 (1.2-3.4); LYMPH% 10.7 % (20.5-51.1); MCH 35.1 PG (27-31); MCHC 34.1 g/dL (33-37); MCV 103.1 FL (81-99); MONO# 1.55 X1000 (0.11-0.59); MONO% 12.4 % (1.7-9.3); MPV 9.5 FL (7.4-10.4); NEUT# 9.07 X1000 (1.4-6.5); NEUT% 72.6 % (42.2-75.2); PLT 539 X1000 (130-400); RBC 3.93 XMIL (4.7-6.1); RDW 11.1 % (11.5-14.5); WBC 12.48 X1000 (4.8-10.8)
[2019-01-31 06:29] LABS: AGAP 10; BUN 15 mg/dL (8-22); CALCIUM 9.1 mg/dL (8.8-10.2); CHLORIDE 99 mmol/L (98-107); COSMO 275; CREATININE 0.5 mg/dL (0.7-1.2); ESTIMATED GFR > 60; GLUCOSE 111 mg/dL (70-104); POTASSIUM 3.7 mmol/L (3.5-5.1); SODIUM 137 mmol/L (136-145); TCO2 28 mmol/L (25-35)
[2019-01-31 06:44] LABS: MAGNESIUM 2.1 mg/dL (1.5-2.7); PHOSPHORUS 3.8 mg/dL (2.7-4.5)
[2019-01-31] MEDS: MUCOMYST 20% INH SCH ×2 (08:27→19:42)
[2019-01-31] MEDS: LASIX IV SCH (08:58)
[2019-01-31] MEDS: CLINIMIX E 4.25%-5% SOLUTION 1,000 ML IV SCH ×2 (08:58→20:07)
[2019-01-31] MEDS: THERA M PLUS PO SCH (08:58)
[2019-01-31] MEDS: DOXYCYCLINE PO SCH ×2 (08:58→20:06)
[2019-01-31] MEDS: VITAMIN B-1 PO SCH (08:58)
[2019-01-31] MEDS: FOLIC ACID PO SCH (08:58)
[2019-01-31] MEDS ORDERED: TYLENOL PO PRN (12:56)
[2019-02-01] MEDS: LOPRESSOR PO SCH ×3 (01:59→14:48)
[2019-02-01] MEDS: HALDOL IV PRN (01:59)
[2019-02-01] MEDS: ATROVENT NEB INH SCH ×3 (03:36→13:51)
[2019-02-01] MEDS: XOPENEX NEB INH SCH ×3 (03:36→13:51)
[2019-02-01 05:20] LABS: BASO# 0.16 X1000 (0.0-0.2); BASO% 1.3 % (0.0-0.8); EOS# 0.41 X1000 (0.0-0.7); EOS% 3.2 % (0.0-10.0); HEMATOCRIT 38.6 % (42.0-52.0); HEMOGLOBIN 13.2 g/dL (14.0-18.0); IMM GRAN# 0.14 X1000 (0.0-0.04); IMM GRAN% 1.1 % (0.0-0.5); LYMPH% 14.8 % (20.5-51.1); MCH 35.5 PG (27-31); MCHC 34.2 g/dL (33-37); MCV 103.8 FL (81-99); MONO# 1.65 X1000 (0.11-0.59); MONO% 12.9 % (1.7-9.3); MPV 9.5 FL (7.4-10.4); NEUT# 8.54 X1000 (1.4-6.5); NEUT% 66.7 % (42.2-75.2); PLT 506 X1000 (130-400); RBC 3.72 XMIL (4.7-6.1); RDW 11.2 % (11.5-14.5)
[2019-02-01 05:38] LABS: AGAP 12; BUN 23 mg/dL (8-22); CALCIUM 9.7 mg/dL (8.8-10.2); CHLORIDE 97 mmol/L (98-107); COSMO 276; CREATININE 0.5 mg/dL (0.7-1.2); ESTIMATED GFR > 60; GLUCOSE 107 mg/dL (70-104); POTASSIUM 3.8 mmol/L (3.5-5.1); SODIUM 136 mmol/L (136-145); TCO2 27 mmol/L (25-35)
--- NOTE | 2019-02-01 07:11 | Diag Imaging Result Doc PS360 ---
EXAM: CHEST-PORTABLE INDICATION: dyspnea TECHNIQUE: One view COMPARISON: 01/31/2019 FINDINGS: The right central line is in stable position. There has been development of mild platelike atelectasis at the right lower lung zone. No other new consolidation is identified. Cardiac silhouette is stable. IMPRESSION: Development of mild platelike atelectasis at the right lower lung zone. Electronically signed by Brennan Panchal 02/01/2019 7:09 AM
[2019-02-01] MEDS: MUCOMYST 20% INH SCH (08:07)
[2019-02-01] MEDS: THERA M PLUS PO SCH (09:00)
[2019-02-01] MEDS: FOLIC ACID PO SCH (09:00)
[2019-02-01] MEDS: DOXYCYCLINE PO SCH (09:00)
[2019-02-01] MEDS ORDERED: LASIX PO SCH (09:00)
[2019-02-01] MEDS: VITAMIN B-1 PO SCH (09:00)
[2019-02-01] MEDS: CLINIMIX E 4.25%-5% SOLUTION 1,000 ML IV SCH (09:15)
--- NOTE | 2019-02-01 11:04 | PROGRESS NOTE ---
DATE: 02/01/2019 SUBJECTIVE: Patient has no major complaints. OBJECTIVE: General: Blood pressure is stable. He is much more awake, alert, answering questions more appropriately. He seems more oriented today. He is eating a little bit. Vital Signs: Blood pressure 101/73, heart rate 76, respiratory rate 18, temperature 97.3 degrees. Cardiovascular: Regular rate and rhythm. Pulmonary: Bilateral breath sounds, clear to auscultation. Gastrointestinal: Soft, nontender, nondistended. Bowel sounds are positive. LABORATORY DATA: White count 12, hemoglobin and hematocrit of 13 and 38, platelets of 506,000. BUN and creatinine of 23 and 0.5. PROBLEM LIST: 1. MRSA pneumonia, seems to be doing okay. He is on oral antibiotics. He does have a mild elevation in his white count, but no fevers. Seems to be improving. 2. Subdural hematoma is felt to be chronic. We will get a neurology opinion today, but most likely at this point this is a noninterventional issue. I did speak with neurosurgery at [place], and they also felt it was chronic. It certainly could be amenable to treatment if there was no other etiology for his encephalopathy, which there is including vitamin deficiency, nutritional deficiency, ICU mediated psychosis, and clinically he is improving, so we will continue supportive measures. Await neurology recommendations. 3. Respiratory failure that is stabilized. 4. Moderate protein-calorie malnutrition. We will continue nutrition for the time being. DISPOSITION: He is stable for LTAC, and we are in the process of transferring him. cc: Jaguar Moyer MD
--- NOTE | 2019-02-01 13:05 | DISCHARGE SUMMARY ---
ADMISSION DATE: 01/16/2019 DISCHARGE DATE: 02/01/2019 DISCHARGE DIAGNOSES: 1. MRSA pneumonia, currently on doxycycline. 2. Acute hypoxic respiratory failure secondary to #1 resolved. 3. Acute alcohol withdrawal in the setting of chronic alcohol abuse. 4. Fluid volume depletion, which is resolved. 5. Hypertension. 6. Left foot cellulitis, resolved. 7. Encephalopathy which is improving. 8. Electrolyte imbalances. 9. Moderate protein calorie 90 malnutrition. The patient received Clinimix. DIAGNOSTICS: 1. 01/18/2019 bilateral lower extremity Doppler revealed no evidence of acute DVT or superficial venous thrombosis bilateral extremities. 2. 01/23/2019 chest x-ray revealed lungs are normally expanded and clear. Heart size and mediastinal contours are normal. No pneumothorax or pleural effusion. 3. 01/23/2019 echocardiogram revealed ejection fraction of 65% with no pericardial effusion or obvious intracardiac mass or thrombus seen. 4. 01/23/2019 abdominal ultrasound revealed significant hepatic steatosis with significant sludge throughout the gallbladder. 5. Chest x-ray 01/24/2019 revealed bibasilar atelectasis. 6. 01/26/2019 chest x-ray revealed worsening right lower lobe infiltrate concerning for pneumonia. 7. 01/26/2019 CT of the chest revealed multilobar right-sided pneumonia, worse in the basilar right lower lobe with small bilateral pleural effusions. 8. 01/27/2019 chest x-ray revealed mild interval improvement. 9. 01/28/2019 chest x-ray revealed an interval improvement in the right basilar infiltrate pneumonia. 10. 01/29/2019 CT of the head revealed bilateral subacute to chronic subdural hemorrhages. 11. 01/30/2019 CT of the head revealed stable exam. 12. 02/01/2019 chest x-ray revealed development of mild plate-like atelectasis at the right lower lung zone. MICROBIOLOGY: 1. Blood cultures 01/23/2019 revealed no growth after 5 days. 2. Sputum culture 01/23/2019 revealed MRSA. 3. 01/28/2019 blood cultures revealed no growth after 48 hours. CONSULTANTS: 1. Dr. Albert Gross, Infectious Disease. 2. Dr. Saldana, Pulmonology. 3. Dr. Brittany Ivan, Neurology. HOSPITAL COURSE: Mr. Breaux presented to the emergency room complaining of weakness in his legs. He was going through alcohol withdrawal at this time. He was admitted to ICU, and he was given Ativan with Librium taper. Electrolytes were followed and repleted as appropriate. He did get thiamin and multivitamin daily. He did have a fluid volume depletion. He was rehydrated. He did tolerate this well. He was found to have left foot cellulitis for which he was started on Kefzol 2 g IV every 8 hours. This has improved. On the , the patient was intubated due to hypoxemic respiratory failure. Pulmonary was consulted. We did continue with pulmonary toilet as well as antibiotics. He was able to be extubated on the , which he did tolerate. He did initially require BiPAP. On the , he was placed on nasal cannula and he has been on room air since 01/30 with O2 saturation staying 95 to 98%. He did have persistent encephalopathy, and on the CT of the head was performed which revealed bilateral subacute chronic subdural hemorrhages. This was repeated on the . It was unchanged. Neurology has seen the patient, and they did feel that this was chronic and that he did not require any procedures at this time. After having been found placed on MRSA, he was treated with Zyvox and Zosyn. On the , Dr. Gross discontinued these medications and placed him on p.o. doxycycline which he has tolerated well. Today, he is awake and alert. He started eating in the last 36 hours. He states that he does feel better as he was not eating. He was given Clinimix. DISCHARGE VITAL SIGNS: Blood pressure 101/73 with a heart rate of 76, respirations 18, temperature is 97.3 degrees oral with room air sats 95 to 98%. DISCHARGE PHYSICAL EXAMINATION: Cardiovascular: Regular rate and rhythm. S1, S2 appreciated. Calves are nontender bilateral with peripheral pulses palpable x4 extremities. Pulmonary: Breath sounds clear with no increased work of breathing noted. Gastrointestinal: Abdomen is soft, nontender, and nondistended with bowel sounds in all 4 quadrants. Skin: Warm and dry. DISCHARGE MEDICATIONS: 1. Thiamin 100 mg p.o. daily. 2. Seroquel 25 mg p.o. at bedtime. 3. Multivitamin 1 p.o. daily. 4. Toprol-XL 25 mg 1 p.o. daily. 5. Nebs q.4 hours. 6. Atrovent nebs q.4 hours. 7. Folic Acid 1 mg p.o. daily. 8. Doxycycline 100 mg 1 p.o. b.i.d. for 10 days. 9. Mucomyst 20% inhalation b.i.d. DISPOSITION: The patient is being discharged in transfer to [facility] in stable condition with family members present. TIME SPENT: This is a greater than 30 minute discharge. Dictated by CARMELLA Posey for Jaguar Moyer MD cc: CARMELLA Posey MD [facility], MD
--- NOTE | 2019-02-01 13:54 | INFECTIOUS DISEASE PROGRESS NO ---
DATE: 02/01/2019 PRESENT ILLNESS: The patient has a methicillin-resistant Staph aureus right lower lobe pneumonia which is improving. MEDICATIONS: This is day 8 of treatment with antibiotics for the pneumonia. Initially, the patient was on Zyvox and now he is on doxycycline. PHYSICAL EXAMINATION: Vital Signs: Temperature is 97.3 degrees, pulse 76, respirations 18, blood pressure 101/73. General: This is an ill-appearing, middle-aged male. He is not in any acute distress. Head/eyes/ears/nose/throat: He can hear my spoken words and see near objects. He does not have any white coating on his tongue. Neck: No pain with movement of his neck. Lungs: Clear to auscultation. Cardiovascular: Heart rate is regular. Abdomen: Soft and nontender. Neurologic: The patient is awake today. He does answer my questions and he does move his extremities to my request. LAB AND X-RAY: Chest x-ray shows left lower lobe platelike atelectasis. The CBC shows a white count of 12,800, hemoglobin 13.2, and platelet count 506,000. Creatinine is 0.6. GFR is greater than 60. ASSESSMENT AND PLAN: Patient has methicillin-resistant Staph aureus pneumonia. The patient is being sent to an long-term acute care today. Dr. Moyer has ordered a week more of doxycycline with which I agree. COMORBIDITIES: The patient is an alcoholic. I am signing off the patient's case. I am available to see him on a p.r.n. basis. cc: Albert Gross MD
--- NOTE | 2019-02-01 15:00 | CONSULTATION ---
DATE OF CONSULTATION: 02/01/2019 Mr. Breaux is 63 years old and there is imaging evidence of bilateral subdural hygromata. The patient has a baseline cognitive impairment and is not able to provide a valid history. Attentive family at the bedside reports being aware of forgetfulness for a few years, gradually more prominent. They have been receiving reports of unsteady gait with more frequent falling. There may have been some head injuries associated with falls, but there is not clear history of significant head injury with altered consciousness or residual neurologic deficit. There is a history of chronic alcohol use to excess and that has continued. Initial noncontrast CT of the head and later contrasted CT showed significant bilateral subdural fluid collections. There does not appear to be significant mass-effect or midline shift. There is not definite evidence of acute bleeding. Past history, as recorded in the computer notes, is that he was initially admitted 01/14/2019 with nonspecific complaints and evidence of ethanol withdrawal. Chlordiazepoxide was suggested and he declined that, and was discharged. He returned to the hospital very soon. He continues hospitalized. Family reports diagnosis of footdrop made in [place] to account for unsteady gait several months ago. There is reported to be a past history of hypertension. Family believes he does not see a doctor regularly and does not take medications regularly. Recent lab work shows WBC 12,000, anemia, mildly elevated blood sugars, normal liver enzymes. His urine toxicology was positive for amphetamine on presentation and negative for all other. On exam, Mr. Breaux is asleep, easily waked, briefly alert and attentive. He answered questions appropriately. He named the President and this facility correctly. He missed the month. He missed the day of the week. He discussed some recent news with a fair amount of detail. I believe he was recalling something he had seen on a television news broadcast this morning. Speech is dysarthric but easily understood. Language function is intact on bedside testing. Remote memory is fair. Recent memory is poor. I did not test his cognitive function more thoroughly. Head and neck are unremarkable. I do not find skull defect or evidence of recent trauma. There is an abrasion over the bridge of the nose. Face is otherwise unremarkable. He has full visual little tested grossly by confrontational finger counting. Extraocular movements are full. Facial motility is symmetric. Gag is intact. Tongue is midline. Hearing is fair. Shoulder shrug is equal. He has good power in the arms and hands. He has good power proximally in the legs. There is some weakness in the anterior tibialis bilaterally, more prominent on the right. He has good power in the gastrocnemius bilaterally. Plantar response is silent bilaterally. Reflexes are absent at the ankles and 1+ at the wrists symmetrically. He reports symmetric light touch appreciation over the feet. Proprioception is good at the great toe MTP joint bilaterally. I did not test his gait. IMPRESSION: 1. Imaging evidence of bilateral subdural hygromata with no clinical evidence of increased intracranial pressure or neurologic deficit attributed to those lesions. He has likely had head trauma in the past but we do not have a specific history. These may have been acute hematomas in the past but there is no significant blood present now. In light of his current appearance, I think best management is to be conservative. Neurosurgical evaluation might be considered later, depending on his clinical course. First, I would be aggressive with the management of nutrition and physical therapy, and force ethanol abstinence at least while he is in a facility. 2. Clinical findings of peripheral neuropathy and footdrop. This is likely due to chronic alcohol abuse. Again, encouraged abstinence. 3. Reported cognitive impairment. This may be due to alcohol, Alzheimer's or other and there may be a combination of etiologies. Later, cholinesterase inhibitor trial might be consideration. Discussed uncertain prognosis regarding recovery of cognitive function frankly with family at the bedside. I will be glad to see Mr. Breaux again if needed. Thanks for asking Neurology to see him here. cc: MD MUKUL Crum III
[2019-02-01 15:20] VITALS: BP 122/87
== END 2019-02-01 16:00 | DRG 896 ==
LOC: ED 18:01 → SUATTDRO 18:02 → ICU 01-17 01:25 → SUATTDRO 01-17 01:25 → 4N 01-19 09:59 → ICU 01-23 10:14
PROVIDERS: ATTEND Internal Medicine